=== PATIENT | female | born 1945 | race Caucasian/White ===

== ENCOUNTER 2019-12-11 05:31 | Inpatient (IN) | payer OTHER ==
[~2019-12-11] VITALS: Ht 154.9 cm; Wt 57.6 kg
[2019-12-11 06:13] VITALS: BP_SYST 162
--- NOTE | 2019-12-11 06:13 | NUR ---
Patient to ER bed 6 to gown for evaluation. Side rails up. Report given to HAYLEE Walker.
--- NOTE | 2019-12-11 06:15 | NUR ---
Pt is alert and oriented. Family at bedside. Pt C/O swelliing to bilateral lower extremities, SOB and loss of appetite. NC @ 3L, SPO2 97%, ST on monitor. Will continue to monitor.
--- NOTE | 2019-12-11 06:18 | NUR ---
ER MD DUMONT AT BEDSIDE EXAMINING PATIENT.
--- NOTE | 2019-12-11 06:45 | NUR ---
# 22 gauge angiocath placed to RFA. Use of asceptic technique. Opsite placed over site. Blood return noted. Blood for lab drawn from site. Flushed with 10 cc of normal saline. No evidence of infiltration noted. Patient tolerated well.
--- NOTE | 2019-12-11 07:05 | NUR ---
Report given to ashley RN. Pt resting in bed. No signs of acute distress noted at this time.
--- NOTE | 2019-12-11 07:15 | NUR ---
Report from Denise LEACH
[2019-12-11 07:18] LABS: BASOPHILS % (AUTO) 0.4 % (0.0-2.0); EOSINOPHILS % (AUTO) 0.1 % (0.0-4.0); HEMATOCRIT 41.1 % (36-48); HEMOGLOBIN 13.6 g/dL (12.0-16.0); LYMPHOCYTES # (AUTO) 0.8 K/uL (1.0-5.5); MEAN CORPUSCULAR HEMOGLOBIN 29 pg (27-31); MEAN CORPUSCULAR HGB CONC 33 % (32-36); MEAN CORPUSCULAR VOLUME 88 fL (79.0-98.0); MONOCYTES # (AUTO) 0.4 K/uL (0.0-1.0); MONOCYTES % (AUTO) 4.1 % (1.7-9.3); NEUTROPHILS # (AUTO) 8.8 K/uL (1.8-7.7); NEUTROPHILS % (AUTO) 87.4 % (40.0-70.0); PLATELET COUNT (AUTO) 206 K/uL (130-430); RED BLOOD CELL COUNT(AUTO) 4.67 MIL/uL (4.2-6.2); RED CELL DISTRIBUTION WIDTH 14.1 % (9.0-15.0)
--- NOTE | 2019-12-11 07:25 | NUR ---
shift lab technician at bedside
[2019-12-11 07:38] LABS: ALANINE AMINOTRANSFERASE 77 U/L (12-78); ALBUMIN 4.1 g/dL (3.4-4.8); ANION GAP 10 (5-15); ASPARTATE AMINOTRANSFERASE 42 U/L (10-37); CALCIUM 8.9 mg/dL (8.4-11.0); CHLORIDE 98 mmol/L (98-107); CREATININE 0.64 mg/dL (0.55-1.30); GLUCOSE 257 mg/dL (70-99); SODIUM SERUM 129 mmol/L (136-145); TOTAL BILIRUBIN 0.9 mg/dL (0.0-1.0); UREA NITROGEN, BLOOD 22 mg/dL (8-21)
--- NOTE | 2019-12-11 08:15 | NUR ---
Patient assisted to restroom. Patient offered Breakfast, refused. Patient given jello and water as requested.
--- NOTE | 2019-12-11 08:25 | NUR ---
ER Dr. Murphy at bedside examining patient.
[2019-12-11 08:57] LABS: INR 1.1 (0.8-1.2)
[2019-12-11] MEDS ORDERED: NITROGLYCERIN 1 INCH (GM) OINT. TP ONE (09:30)
--- NOTE | 2019-12-11 09:30 | NUR ---
CTA consent obtained.
[2019-12-11] MEDS ORDERED: ASPI-1155 PO (09:35)
[2019-12-11] MEDS ORDERED: ASPI-989 PO (09:35)
[2019-12-11] MEDS ORDERED: ASPI-1153 PO (09:35)
[2019-12-11] MEDS ORDERED: LIP10 PO (09:38)
[2019-12-11] MEDS ORDERED: GLUXR500 PO (09:38)
--- NOTE | 2019-12-11 09:50 | NUR ---
Patient returned to ER from CT
[2019-12-11] MEDS ORDERED: IOHEXOL 350 mgI/mL, 150 ML INFUS..BTL IV ONE (09:57)
--- NOTE | 2019-12-11 10:11 | NUR ---
Admission Note Received patient from ER with diagnosis of chf. Initial Plan of Care discussed-patient verbalized understanding. Family at bedside. Oriented to room, call light, pain management and safety.
[2019-12-11 10:23] VITALS: BP_SYST 105
[2019-12-11] MEDS ORDERED: FUROSEMIDE 40 MG/4 ML VIAL IVP ONE (11:30)
[2019-12-11 12:31] VITALS: BP_SYST 126
[2019-12-11] MEDS ORDERED: ASPIRIN 325 MG TABLET (ECOTRIN) PO ONE (12:45)
[2019-12-11] MEDS ORDERED: INSULIN REGULAR, HUMAN 100 UNITS/ML, 10 ML VIAL (humuLIN R) SUBCUT PRN (12:45)
[2019-12-11] MEDS ORDERED: DEXTROSE 50% JECT 50 ML DISP.SYRIN IVP PRN (12:45)
--- NOTE | 2019-12-11 12:47 | NUR ---
medications patient is resting in bed, at the bedside, educated on medication uses and side effects, patient verbalized understanding, patient tolerated well, no other needs addressed at this time, patient sitting on the edge of the bed, on 2L nasal cannula.
[2019-12-11 14:28] LABS: CHOLESTEROL 194 mg/dL (<200); HDL CHOLESTEROL 45 mg/dL (>55); LDL CHOLESTEROL 128 mg/dL (<100); TRIGLYCERIDES 94 mg/dL (30-150)
--- NOTE | 2019-12-11 14:31 | NUR ---
CONSULTATION PAGED/CALLED Reason for Consultation: CHF Person Who was Notified: ODETTE Consulting Physician: Earth Auger Operator Specialty: CARDIO Ordering Physician:
[2019-12-11] MEDS: FUROSEMIDE 40 MG/4 ML VIAL IVP SCH ×2 (14:36→22:01)
--- NOTE | 2019-12-11 14:37 | NUR ---
scheduled medication patient is resting in bed, sitting on the chair watching tv, educated on medication uses and side effects, patient verbalized understanding, patient tolerated well, assisted patient to bathroom and back to the chair, no other needs addressed at this time, patient sitting on the edge of the bed, on 2L nasal cannula, fall/safety precautions in place.
[2019-12-11 16:19] VITALS: BP_SYST 126
--- NOTE | 2019-12-11 16:40 | NUR ---
IV insertion done for CT with contrast to be done, patient verbalized understanding, no signs of distress at this time, assisted patient to bathroom and back to chair.
[2019-12-11] MEDS ORDERED: LOSARTAN POTASSIUM 50 MG TABLET (COZAAR) PO ONE (17:30)
--- NOTE | 2019-12-11 18:48 | NUR ---
closing note patient is resting in bed, sitting on the chair watching tv, no signs of distress at this time, no other needs addressed at this time, on 2L nasal cannula, call light within reach, fall/safety precautions in place, will endorse report to noc shift nurse to continue with care, patient can walk steady to the bathroom with assistance, patient has been sitting on the chair and there are times when she does not call for assistance to the bathroom, her chair is close to the bathroom.
[2019-12-11 20:00] VITALS: BP_SYST 117
--- NOTE | 2019-12-11 20:00 | NUR ---
ASSUMED CARE. RECEIVED ALERT,ORIENTED,SITTING ON CHAIR. AFEBRILE, NOT IN ACUTE DISTRESS. VERBALIZED SOB ON EXERTION AND ORTHOPNEA. ALSO COMPLAINED OF BILATERAL LEG/FOOT PAIN. NO PAIN MEDICATION ORDERED. WILL CALL ATTENDING MD. WITH SALINE LOCK TO THE RIGHT FOREARM #22 INTACT. SAO2=98% ON 2 LPM O2 VIA NC. SINUS RHYTHM AT 90'S/MINUTE ON THE MONITOR. VS STABLE, WILL CONTINUE TO MONITOR. NEEDS ATTENDED.
[2019-12-11] MEDS: CARVEDILOL 12.5 MG TABLET (COREG) PO SCH (21:09)
--- NOTE | 2019-12-11 21:09 | NUR ---
DUE MEDICATION GIVEN SCHEDULED.
--- NOTE | 2019-12-11 21:19 | NUR ---
paged paged for Dr Donaldson, dialed . s/w Barbara.
--- NOTE | 2019-12-11 21:30 | NUR ---
, CLOTH TESTER QUALITY FOR RETURNED CALL AND MADE AWARE OF PT'S COMPLAINT. NORCO 5/325 MG PO X1 ORDERED VIA TELEPHONE.
[2019-12-11] MEDS ORDERED: HYDROcodone/ACETAMIN 5-325 MG TAB (NORCO/ VICODIN) PO ONE (21:45)
--- NOTE | 2019-12-11 22:01 | NUR ---
NORCO 5/325 MG 1 TAB.PO AND LASIX 40 MG IVP GIVEN.
[2019-12-11] MEDS: INSULIN LISPRO SLIDING SCALE 100 UNITS/ML VIAL (humaLOG) SUBCUT PRN (23:27)
[2019-12-11] MEDS: ZOLPIDEM TARTRATE 5 MG TABLET PO PRN (23:30)
--- NOTE | 2019-12-11 23:30 | NUR ---
FINGERSTICK BLOOD SUGAR JUSUC=866. 2 UNITS OF HUMALOG SQ GIVEN PER SLIDING SCALE. AMBIEN 5 MG PO ALSO GIVEN REQUESTED FOR SLEEP. PT. ATE SNACK (OF FRUITS) PER DAIRY INSPECTOR.
--- NOTE | 2019-12-12 00:15 | NUR ---
ASLEEP, NOT IN ANY KIND OF DISTRESS. NO PAIN OR DISCOMFORT NOTED AT THIS TIME. SBP=95 POSSIBLY DUE TO LASIX IV. OTHERWISE ASYMPTOMATIC. SIDE RAILS UP, CALL LIGHT WITHIN REACH,BED ALARM ON. KEPT WARM AND COMFORTABLE. WILL CONTINUE TO MONITOR.
[2019-12-12 01:01] VITALS: BP_SYST 95
--- NOTE | 2019-12-12 02:15 | NUR ---
ASLEEP, PT. REMAINS ASYMPTOMATIC AND PAIN FREE.
--- NOTE | 2019-12-12 04:00 | NUR ---
ASLEEP, NO PAIN OR DISCOMFORT NOTED. CONDITION REMAIN UNCHANGED. WILL CONTINUE TO MONITOR.
[2019-12-12] MEDS: FUROSEMIDE 40 MG/4 ML VIAL IVP SCH (06:09)
--- NOTE | 2019-12-12 06:09 | NUR ---
FINGERSTICK BLOOD SUGAR ZIAON=122. NO INSULIN COVERAGE NEEDED. DUE MEDICATION GIVEN. PT. REMAINS STABLE AND PAIN FREE. WILL ENDORSE CARE TO AM SHIFT RN.
[2019-12-12 06:20] LABS: BASOPHILS % (AUTO) 0.6 % (0.0-2.0); EOSINOPHILS # (AUTO) 0.1 K/uL (0.0-0.4); EOSINOPHILS % (AUTO) 1.4 % (0.0-4.0); HEMOGLOBIN 12.6 g/dL (12.0-16.0); LYMPHOCYTES # (AUTO) 1.4 K/uL (1.0-5.5); LYMPHOCYTES % (AUTO) 22.5 % (20.5-51.5); MEAN CORPUSCULAR HEMOGLOBIN 29 pg (27-31); MEAN CORPUSCULAR HGB CONC 33 % (32-36); MEAN CORPUSCULAR VOLUME 88 fL (79.0-98.0); MONOCYTES # (AUTO) 0.7 K/uL (0.0-1.0); MONOCYTES % (AUTO) 10.8 % (1.7-9.3); NEUTROPHILS # (AUTO) 3.9 K/uL (1.8-7.7); NEUTROPHILS % (AUTO) 64.7 % (40.0-70.0); PLATELET COUNT (AUTO) 170 K/uL (130-430); RED BLOOD CELL COUNT(AUTO) 4.32 MIL/uL (4.2-6.2); RED CELL DISTRIBUTION WIDTH 14.1 % (9.0-15.0)
[2019-12-12 06:41] LABS: INR 1.1 (0.8-1.2)
[2019-12-12 06:51] LABS: ALANINE AMINOTRANSFERASE 58 U/L (12-78); ALBUMIN 3.5 g/dL (3.4-4.8); ANION GAP 7 (5-15); ASPARTATE AMINOTRANSFERASE 36 U/L (10-37); CALCIUM 8.9 mg/dL (8.4-11.0); CHLORIDE 103 mmol/L (98-107); CREATININE 0.67 mg/dL (0.55-1.30); GLUCOSE 125 mg/dL (70-99); POTASSIUM 3.3 mmol/L (3.5-5.1); SODIUM SERUM 138 mmol/L (136-145); THYROID STIMULATING HORMONE 3.46 uIu/mL (0.36-3.74); TOTAL BILIRUBIN 0.7 mg/dL (0.0-1.0); UREA NITROGEN, BLOOD 19 mg/dL (8-21)
--- NOTE | 2019-12-12 07:07 | NUR ---
ALBINO FROM THE LAB.CALLED RE: TROPONIN=[phone]. SERUM POTASSIUM LEVEL ALSO LOW AT 3.3. WILL NOTIFY COMPUTER TEACHER ON CASE .
--- NOTE | 2019-12-12 07:11 | NUR ---
CARDILOGIST, DR MONDRAGON WAS CALLED, RE: CRITICAL TROP LEVEL. SPOKE TO TALAT.
--- NOTE | 2019-12-12 07:20 | NUR ---
REPORT GIVEN TO SANAZ ADDISON.
--- NOTE | 2019-12-12 07:30 | NUR ---
Opening note Patient sitting up in bed at this time, A/ox4, no complaint of pain. No SOB. Iv patent, intact. No adverse side effects noted. No infiltration noted. On safety and aspiration precautions, HOB kept elevated, 3 side rails up, call light within reach. Patient in stable condition. Will continue to monitor.
[2019-12-12 08:00] VITALS: BP_SYST 111
[2019-12-12] MEDS: LOSARTAN POTASSIUM 50 MG TABLET (COZAAR) PO SCH (08:58)
[2019-12-12] MEDS: SPIRONOLACTONE 25 MG TABLET (ALDACTONE) PO SCH (08:58)
[2019-12-12] MEDS: CARVEDILOL 12.5 MG TABLET (COREG) PO SCH ×2 (08:58→20:50)
[2019-12-12] MEDS ORDERED: ASPIRIN 81 MG TAB.CHEW PO SCH (09:00)
[2019-12-12] MEDS ORDERED: POTASSIUM CHLORIDE 20 MEQ TAB.PRT.SR PO ONE (09:00)
[2019-12-12] MEDS ORDERED: POTASSIUM CHLORIDE 20 MEQ TAB.PRT.SR PO SCH (09:00)
[2019-12-12] MEDS ORDERED: ASPIRIN 325 MG TABLET (ECOTRIN) PO SCH (09:00)
--- NOTE | 2019-12-12 09:00 | NUR ---
medications All morning medications given as ordered. No nausea, no vomiting noted.
[2019-12-12] MEDS ORDERED: ASPIRIN 81 MG TAB.CHEW PO ONE (09:15)
[2019-12-12] MEDS ORDERED: ACETAMINOPHEN 325 MG TABLET PO PRN (09:30)
[2019-12-12] MEDS: HYDROcodone/ACETAMIN 5-325 MG TAB (NORCO/ VICODIN) PO PRN (10:01)
--- NOTE | 2019-12-12 11:25 | NUR ---
bathroom rounds patient ambulated to the restroom and back to bed with assistance. No other needs at this time.
[2019-12-12] MEDS: MORPHINE 2 MG/ML INJ. SYRINGE IVP PRN ×2 (11:54→20:47)
[2019-12-12 12:42] VITALS: BP_SYST 101
--- NOTE | 2019-12-12 13:26 | NUR ---
rounds Patient resting in bed at this time, no complaints of pain. No other needs at this time.
--- NOTE | 2019-12-12 15:45 | NUR ---
bathroom rounds Assisted patient to the restroom and back to bed. patient noted with steady gait.
--- NOTE | 2019-12-12 16:23 | NUR ---
Dietitian Recommendations * Recommend CCHO, cardiac diet LP, RD Please refer to Nutrition Assessment for details. Signed: 12/12/19 at 1624 by Zainab WATTS <Co-Signature Required> Co-Signed: 12/12/19 at [address] Addendum: 12/12/19 at 1626 by Zainab WATTS Amended: Links added.
[2019-12-12 16:55] VITALS: BP_SYST 108
[2019-12-12] MEDS: INSULIN LISPRO SLIDING SCALE 100 UNITS/ML VIAL (humaLOG) SUBCUT PRN (17:17)
--- NOTE | 2019-12-12 18:33 | NUR ---
closing note Patient sitting up in bed at this time, A/ox4, no complaint of pain. No SOB. Iv patent, intact. No adverse side effects noted. No infiltration noted. On safety and aspiration precautions, HOB kept elevated, 3 side rails up, call light within reach. Patient in stable condition. All needs met.
--- NOTE | 2019-12-12 19:22 | NUR ---
OPENING NOTES Received patient resting in bed, 2L NC and no signs of respiratory distress observed. IV site patent, dressings c/d/i. Oriented patient to call light and plan of care. Call light within reach, bed alarm on, bed at lowest position. Will continue to monitor.
[2019-12-12 20:25] VITALS: BP_SYST 130
[2019-12-12] MEDS: POTASSIUM CHLORIDE 20 MEQ TAB.PRT.SR PO SCH (20:46)
--- NOTE | 2019-12-12 21:00 | NUR ---
Provided patient PRN pain medication, patient tolerating well. Before providing medication, assisted with ambulation to the restroom. Unsteady gait without support. No signs of respiratory distress. Will continue to monitor. Bed alarm on and call light within reach.
[2019-12-12] MEDS: ZOLPIDEM TARTRATE 5 MG TABLET PO PRN (23:13)
--- NOTE | 2019-12-12 23:20 | NUR ---
Provided patient with al and ambien. Call light within reach, bed alarm on, and bed at lowest position. Will continue to monitor.
[2019-12-13] VITALS: BP_SYST 138
--- NOTE | 2019-12-13 02:11 | NUR ---
Patient is resting, eyes closed. Call light within reach, bed alarm on, bed at lowest position. Feet elevated. Will continue to monitor.
--- NOTE | 2019-12-13 04:05 | NUR ---
Patient is asleep, eyes closed. Rise and fall of chest noted, No respiratory distress, 2L NC. Will continue to monitor.
[2019-12-13 06:50] LABS: ANION GAP 8 (5-15); CALCIUM 8.8 mg/dL (8.4-11.0); CHLORIDE 102 mmol/L (98-107); CREATININE 0.67 mg/dL (0.55-1.30); GLUCOSE 129 mg/dL (70-99); POTASSIUM 3.9 mmol/L (3.5-5.1); SODIUM SERUM 138 mmol/L (136-145); UREA NITROGEN, BLOOD 18 mg/dL (8-21)
--- NOTE | 2019-12-13 06:57 | NUR ---
CLOSING NOTES Patient is resting in bed, 2L NC and no signs of respiratory distress observed. IV site patent, dressings c/d/i. Patient returns after ambulating to the restroom. Call light within reach, bed alarm on, bed at lowest position. All needs met throughout shift. Will endorse care to oncoming shift.
[2019-12-13 08:00] VITALS: BP_SYST 117
--- NOTE | 2019-12-13 08:00 | NUR ---
RN INITIAL NOTES RECEIVED PATIENT IN BED ALERT AWAKE AND VERBAL NO PAIN AT THIS TIME , RESP EVEN AND UNLABORED , PATIENT BRP AND SAFETY AWARENESS REINFORCED ASSISTED WITH BRP
[2019-12-13] MEDS: LOSARTAN POTASSIUM 50 MG TABLET (COZAAR) PO SCH ×3 (08:37→09:43)
[2019-12-13] MEDS: POTASSIUM CHLORIDE 20 MEQ TAB.PRT.SR PO SCH ×2 (08:38→21:02)
[2019-12-13] MEDS: CARVEDILOL 12.5 MG TABLET (COREG) PO SCH ×2 (08:38→21:03)
[2019-12-13] MEDS: ASPIRIN 81 MG TAB.CHEW PO SCH (08:38)
[2019-12-13] MEDS: SPIRONOLACTONE 25 MG TABLET (ALDACTONE) PO SCH (08:39)
--- NOTE | 2019-12-13 10:00 | NUR ---
ROUNDS PATIENT ASSISTED TO THE BR
--- NOTE | 2019-12-13 11:33 | NUR ---
DR MONDRAGON CARDIOLOGY CAME DISCUSSED PATIENT CONDITION
[2019-12-13] MEDS ORDERED: METOLAZONE 5 MG TABLET PO ONE (11:45)
[2019-12-13] MEDS: INSULIN LISPRO SLIDING SCALE 100 UNITS/ML VIAL (humaLOG) SUBCUT PRN ×2 (11:49→18:28)
[2019-12-13 12:00] VITALS: BP_SYST 108
--- NOTE | 2019-12-13 14:00 | NUR ---
STOOL SOFTENER PATIENT COMPLAINED OF NO BM X 3 DAYS CALLED MD WITH ORDERS NOTED EXPLAINED TO PATIENT
--- NOTE | 2019-12-13 14:05 | NUR ---
Medical Nutrition Therapy RD provided additional F/U nutrition education on diabetic/heart-healthy MNT. Pt had general nutrition question regarding food choices while on this type of diet. RD educated pt on importance of maintaining consumption of green leafy vegetables, fruits, and whole grain products, and limiting processed products and animal-based foods. Instead, baked fish, and lean poultry sources were encouraged. Pt was appreciative of RD visit. RD contact info was provided w/ handout provided by undergraduate internship 12/12/19. RD also shared resources for diabetic/heart-healthy recipes: [place] [employer] and [place] [employer] websites.
--- NOTE | 2019-12-13 16:00 | NUR ---
ROUNDS PATIENT AWAKE ADLS ASSISTED NO DISTRESS
[2019-12-13] MEDS ORDERED: PSYLLIUM HUSK 1 PKT PACKET PO ONE (16:45)
[2019-12-13] MEDS ORDERED: DOCUSATE SODIUM 100 MG CAPSULE PO PRN (16:45)
[2019-12-13 16:46] VITALS: BP_SYST 106
--- NOTE | 2019-12-13 18:36 | NUR ---
ENDORSEMENT]= WILL ENDORSE TO NEXT SHIFT CONT CARE , PATIENT STILL NEEDS DIURETICS PER RIGGER CHIEF , PATIENT EXPLAINED PLAN OF CARE
[2019-12-13 19:45] VITALS: BP_SYST 118
--- NOTE | 2019-12-13 19:45 | NUR ---
INITIAL NOTE AT INITIAL ASSESSMENT, PATIENT IS RESTING IN BED, STABLE, NO SIGNS OF RESPIRATORY DISTRESS. PATIENT VERBALIZES NO PAIN. PLAN OF CARE FOR THE EVENING IS COMMUNICATED WITH THE PATIENT. PATIENT SUCCESSFULLY DEMONSTRATES USAGE OF CALL LIGHT AT THIS TIME. BED IS LOCKED, ALARMED, AND AT THE LOWEST LEVEL. FALL, SAFETY, RESPIRATORY, AND ASPIRATION PRECAUTIONS WILL BE TAKEN THROUGHOUT THE SHIFT.
--- NOTE | 2019-12-13 19:50 | NUR ---
INITIAL NOTE AT INITIAL ASSESSMENT, PATIENT IS RESTING IN BED, STABLE, NO SIGNS OF RESPIRATORY DISTRESS. PATIENT SHOWS NO PAIN PER FLACC SCALE USED. PLAN OF CARE FOR THE EVENING IS COMMUNICATED WITH THE PATIENT. CALL LIGHT TEACH BACK IS UNSUCCESSFUL DUE TO COGNITIVE IMPAIRMENT. FREQUENT ROUNDING WILL BE COMPLETED TO CLOSELY ASSESS FOR PATIENT'S NEEDS. BED IS LOCKED, ALARMED, AND AT THE LOWEST LEVEL. FALL, SAFETY, RESPIRATORY, AND ASPIRATION PRECAUTIONS WILL BE TAKEN THROUGHOUT THE SHIFT. PATIENT WILL BE TURNED AT LEAST [id number] THROUGHOUT THE SHIFT. Addendum: 12/14/19 at 0730 by Can Claudio RN NOTE INTENDED FOR DIFFERENT PATIENT
[2019-12-13] MEDS: PSYLLIUM HUSK 1 PKT PACKET PO SCH (21:00)
[2019-12-13] MEDS: DOCUSATE SODIUM 100 MG CAPSULE PO SCH (21:02)
[2019-12-13] MEDS: MORPHINE 2 MG/ML INJ. SYRINGE IVP PRN (21:12)
--- NOTE | 2019-12-13 21:45 | NUR ---
NOTE PRN MEDICATION FOR PAIN GIVEN AT THIS TIME PER MD ORDERS. SCHEDULED MEDICATIONS ALSO GIVEN AT THIS TIME, PATIENT TOLERATED WELL. SHE IS STABLE, NO SIGNS OF RESPIRATORY DISTRESS. CALL LIGHT IS WITHIN REACH. BED IS LOCKED, ALARMED, AND AT THE LOWEST LEVEL.
--- NOTE | 2019-12-13 21:50 | NUR ---
NOTE PATIENT HAS NO RESIDUAL AT THIS TIME. SCHEDULED MEDICATIONS GIVEN AT THIS TIME, PATIENT TOLERATED WELL. HE IS STABLE, NO SIGNS OF RESPIRATORY DISTRESS. BED IS LOCKED, ALARMED, AND AT THE LOWEST LEVEL. Addendum: 12/14/19 at 0730 by Can Claudio RN NOTE INTENDED FOR DIFFERENT PATIENT
[2019-12-13] MEDS: ZOLPIDEM TARTRATE 5 MG TABLET PO PRN (22:49)
--- NOTE | 2019-12-13 23:45 | NUR ---
NOTE PRN MEDICATION FOR INSOMNIA IS GIVEN AT THIS TIME PER PATIENT REQUEST. SHE IS STABLE, NO SIGNS OF RESPIRATORY DISTRESS. CALL LIGHT WITHIN REACH. BED IS LOCKED, ALARMED, AND AT THE LOWEST LEVEL.
[2019-12-14 00:39] VITALS: BP_SYST 131
--- NOTE | 2019-12-14 01:45 | NUR ---
NOTE PATIENT IS SLEEPING, STABLE, NO SIGNS OF RESPIRATORY DISTRESS. CALL LIGHT WITHIN REACH. BED IS LOCKED, ALARMED, AND AT THE LOWEST LEVEL.
--- NOTE | 2019-12-14 03:45 | NUR ---
NOTE PATIENT IS SLEEPING, STABLE, NO SIGNS OF RESPIRATORY DISTRESS. CALL LIGHT WITHIN REACH. BED IS LOCKED, ALARMED, AND AT THE LOWEST LEVEL.
--- NOTE | 2019-12-14 05:00 | NUR ---
NOTE PATIENT IS SLEEPING, STABLE, NO SIGNS OF RESPIRATORY DISTRESS. CALL LIGHT WITHIN REACH. BED IS LOCKED, ALARMED, AND AT THE LOWEST LEVEL.
--- NOTE | 2019-12-14 06:30 | NUR ---
CLOSING NOTE BLOOD SUGAR CHECK AT THIS TIME REQUIRED NO INSULIN COVERAGE PER SSI ORDERED BY MD. AT THIS TIME, PATIENT IS RESTING IN BED, STABLE, NO SIGNS OF RESPIRATORY DISTRESS. BED IS LOCKED, ALARMED, AND AT THE LOWEST LEVEL. FALL, SAFETY, RESPIRATORY, AND ASPIRATION PRECAUTIONS HAVE BEEN IN PLACE THROUGHOUT THE SHIFT. WILL CONTINUE TO MONITOR UNTIL SHIFT REPORT IS GIVEN AT BEDSIDE TO AM NURSE.
[2019-12-14 07:44] LABS: BASOPHILS % (AUTO) 0.3 % (0.0-2.0); EOSINOPHILS # (AUTO) 0.1 K/uL (0.0-0.4); EOSINOPHILS % (AUTO) 2.1 % (0.0-4.0); HEMATOCRIT 35.9 % (36-48); LYMPHOCYTES # (AUTO) 1.2 K/uL (1.0-5.5); LYMPHOCYTES % (AUTO) 21.7 % (20.5-51.5); MEAN CORPUSCULAR HEMOGLOBIN 29 pg (27-31); MEAN CORPUSCULAR HGB CONC 33 % (32-36); MEAN CORPUSCULAR VOLUME 88 fL (79.0-98.0); MONOCYTES # (AUTO) 0.6 K/uL (0.0-1.0); MONOCYTES % (AUTO) 11.9 % (1.7-9.3); NEUTROPHILS # (AUTO) 3.4 K/uL (1.8-7.7); PLATELET COUNT (AUTO) 149 K/uL (130-430); RED BLOOD CELL COUNT(AUTO) 4.08 MIL/uL (4.2-6.2); RED CELL DISTRIBUTION WIDTH 13.8 % (9.0-15.0); WHITE BLOOD COUNT (AUTO) 5.3 K/uL (4.8-10.8)
[2019-12-14 08:19] LABS: ANION GAP 6 (5-15); CHLORIDE 101 mmol/L (98-107); CREATININE 0.57 mg/dL (0.55-1.30); GLUCOSE 128 mg/dL (70-99); POTASSIUM 4.1 mmol/L (3.5-5.1); SODIUM SERUM 137 mmol/L (136-145); UREA NITROGEN, BLOOD 14 mg/dL (8-21)
[2019-12-14] MEDS: PSYLLIUM HUSK 1 PKT PACKET PO SCH ×3 (09:00→20:47)
[2019-12-14] MEDS: SPIRONOLACTONE 25 MG TABLET (ALDACTONE) PO SCH ×2 (09:13→20:47)
[2019-12-14] MEDS: LOSARTAN POTASSIUM 50 MG TABLET (COZAAR) PO SCH (09:13)
[2019-12-14] MEDS: CARVEDILOL 12.5 MG TABLET (COREG) PO SCH ×2 (09:14→20:47)
[2019-12-14] MEDS: ASPIRIN 81 MG TAB.CHEW PO SCH (09:14)
[2019-12-14] MEDS: DOCUSATE SODIUM 100 MG CAPSULE PO SCH ×2 (09:14→20:46)
[2019-12-14] MEDS: POTASSIUM CHLORIDE 20 MEQ TAB.PRT.SR PO SCH ×2 (09:15→20:46)
[2019-12-14] MEDS: cefTRIAXone 1 GM in D5W 50 ML IV SCH (09:16)
[2019-12-14] MEDS ORDERED: METOLAZONE 2.5 MG TABLET PO ONE (11:15)
[2019-12-14 12:29] VITALS: BP_SYST 123
[2019-12-14] MEDS: INSULIN LISPRO SLIDING SCALE 100 UNITS/ML VIAL (humaLOG) SUBCUT PRN ×2 (12:58→17:15)
[2019-12-14 13:32] LABS: BODY FLUID SOURCE/ TYPE PLEURAL; SOURCE/TYPE ,BODY FLUID THORACENTESIS
[2019-12-14 13:33] LABS: APPEARANCE,SPUN,BODY FLUID CLEAR (CLEAR); BF APPEARANCE UNSPUN HAZY (CLEAR); BODY FLUID COLOR YELLOW (LT YELLOW); BODY FLUID TOTAL VOLUME 1000 mL; RBC, BODY FLUID 817 /uL; WBC, BODY FLUID 861 /uL
[2019-12-14 13:34] LABS: MONOCYTES,BODY FLUID 85 %; NEUTROPHIL, BODY FLUID 15 %
[2019-12-14] MEDS: HYDROcodone/ACETAMIN 5-325 MG TAB (NORCO/ VICODIN) PO PRN (14:09)
[2019-12-14 16:32] VITALS: BP_SYST 128
--- NOTE | 2019-12-14 19:45 | NUR ---
Endorsement of care: Report received from ashley LEACH at patient's bedside; however, patient requested a female nurse. Care endorsed at this time to HAYLEE Mancilla. Addendum: 12/15/19 at 2355 by Deni Bunch RN Please disregard note, wrong date.
[2019-12-14 19:50] VITALS: BP_SYST 110
--- NOTE | 2019-12-14 19:50 | NUR ---
INITIAL NOTE AT INITIAL ASSESSMENT, PATIENT IS RESTING IN BED, STABLE, NO SIGNS OF RESPIRATORY DISTRESS. PATIENT VERBALIZES TOLERABLE PAIN. PLAN OF CARE FOR THE EVENING IS COMMUNICATED WITH THE PATIENT. PATIENT SUCCESSFULLY DEMONSTRATES USAGE OF CALL LIGHT AT THIS TIME. BED IS LOCKED, ALARMED, AND AT THE LOWEST LEVEL. FALL, SAFETY, RESPIRATORY, AND ASPIRATION PRECAUTIONS WILL BE TAKEN THROUGHOUT THE SHIFT.
[2019-12-14] MEDS: MORPHINE 2 MG/ML INJ. SYRINGE IVP PRN (20:49)
[2019-12-14 21:34] LABS: BODY FLUID GLUCOSE 166 mg/dL; BODY FLUID TOTAL PROTEIN 2.7 g/dL
--- NOTE | 2019-12-14 21:50 | NUR ---
NOTE PRN MEDICATION FOR PAIN GIVEN AT THIS TIME FOR PATIENT'S COMPLAIN OF PAIN. SCHEDULED MEDICATIONS ALSO GIVEN AT THIS TIME, PATIENT TOLERATED WELL. SHE IS STABLE, NO SIGNS OF RESPIRATORY DISTRESS. CALL LIGHT IS WITHIN REACH. BED IS LOCKED, ALARMED, AND AT THE LOWEST LEVEL.
[2019-12-14] MEDS: ZOLPIDEM TARTRATE 5 MG TABLET PO PRN (22:12)
--- NOTE | 2019-12-14 23:50 | NUR ---
NOTE PRN MEDICATION FOR INSOMNIA GIVEN PER PATIENT COMPLAINT OF INSOMNIA. SHE IS RESTING IN BED, IS STABLE, NO SIGNS OF RESPIRATORY DISTRESS. CALL LIGHT IS WITHIN REACH. BED IS LOCKED, ALARMED, AND AT THE LOWEST LEVEL.
[2019-12-15 00:37] VITALS: BP_SYST 115
[2019-12-15] MEDS: MORPHINE 2 MG/ML INJ. SYRINGE IVP PRN ×2 (01:28→22:44)
--- NOTE | 2019-12-15 01:50 | NUR ---
NOTE PRN MEDICATION FOR PAIN GIVEN AT THIS TIME FOR PATIENT'S COMPLAIN OF PAIN. SHE IS STABLE, NO SIGNS OF RESPIRATORY DISTRESS. CALL LIGHT IS WITHIN REACH. BED IS LOCKED, ALARMED, AND AT THE LOWEST LEVEL.
--- NOTE | 2019-12-15 03:00 | NUR ---
NOTE PATIENT IS SLEEPING, STABLE, NO SIGNS OF RESPIRATORY DISTRESS. CALL LIGHT WITHIN REACH. BED IS LOCKED, ALARMED, AND AT THE LOWEST LEVEL.
--- NOTE | 2019-12-15 05:00 | NUR ---
NOTE PATIENT IS SLEEPING, STABLE, NO SIGNS OF RESPIRATORY DISTRESS. CALL LIGHT WITHIN REACH. BED IS LOCKED, ALARMED, AND AT THE LOWEST LEVEL.
--- NOTE | 2019-12-15 06:15 | NUR ---
CLOSING NOTE BLOOD SUGAR CHECK AT THIS TIME REQUIRED NO INSULIN COVERAGE PER SSI ORDERED BY MD. AT THIS TIME, PATIENT IS RESTING IN BED, STABLE, NO SIGNS OF RESPIRATORY DISTRESS. BED IS LOCKED, ALARMED, AND AT THE LOWEST LEVEL. FALL, SAFETY, AND ASPIRATION PRECAUTIONS HAVE BEEN IN PLACE THROUGHOUT THE SHIFT. WILL CONTINUE TO MONITOR UNTIL SHIFT REPORT IS GIVEN AT BEDSIDE TO AM NURSE.
[2019-12-15 07:50] VITALS: BP_SYST 121
--- NOTE | 2019-12-15 08:00 | NUR ---
Note Pt sitting up in bed eating breakfast at this time. No SOB/resp or pain/discomfort noted at this time. Tele unit attached and intact. IV in right forearm intact and patent at this time. No needs noted at this time. Call light within reach.
[2019-12-15] MEDS: cefTRIAXone 1 GM in D5W 50 ML IV SCH (08:24)
[2019-12-15] MEDS: CARVEDILOL 12.5 MG TABLET (COREG) PO SCH ×2 (08:25→20:54)
[2019-12-15] MEDS: ASPIRIN 81 MG TAB.CHEW PO SCH (08:25)
[2019-12-15] MEDS: POTASSIUM CHLORIDE 20 MEQ TAB.PRT.SR PO SCH ×2 (08:25→20:54)
[2019-12-15] MEDS: DOCUSATE SODIUM 100 MG CAPSULE PO SCH ×2 (08:25→20:55)
[2019-12-15] MEDS: LOSARTAN POTASSIUM 50 MG TABLET (COZAAR) PO SCH (08:26)
[2019-12-15] MEDS: SPIRONOLACTONE 25 MG TABLET (ALDACTONE) PO SCH ×2 (08:26→20:55)
[2019-12-15] MEDS: PSYLLIUM HUSK 1 PKT PACKET PO SCH ×3 (08:27→20:56)
[2019-12-15] MEDS ORDERED: METOLAZONE 2.5 MG TABLET PO SCH (09:00)
[2019-12-15] MEDS: INSULIN LISPRO SLIDING SCALE 100 UNITS/ML VIAL (humaLOG) SUBCUT PRN ×3 (11:29→21:12)
--- NOTE | 2019-12-15 11:45 | NUR ---
Note Pt ambulates in room and to restroom independently with FWW and steady gait. Pt was able to have bowel movement today after 4 days. Pt's at bedside at this time. Pt denies any needs at this time. Call light within reach.
[2019-12-15 12:00] VITALS: BP_SYST 109
--- NOTE | 2019-12-15 14:24 | NUR ---
Nutrition F/U RD reviewed pt's current EMR including diet Hx, physician notes, nursing notes, pertinent labs/meds/procedures, care trends and care activity. Nutrition Consult received for BLE wounds. Current Diet Order: Cardiac CCHO diet x 2 days Subjective information: Pt seen in room w/ family members earlier this morning. Pt is awaiting R sided thoracentesis today 12/15. Continues w/ good appetite. Bertrand is warranted for skin integrity. BG lab value 12/14 128H Current PO intake: 12/14/2019: 85% average of 3 meals 12/13/2019: 75% average of 3 meals Estimated Energy Expenditure (kcals/day) 6222-8943 kcal/day (25-30 kcal/kg ABW for geriatric age) Estimated Protein Required (g/day) 51-61 gm/day (1-1.2 gm/kg ABW for geriatric maintenance) Estimated Fluid Required (l/day) Defer to MD d/t CHF Problem/Etiology/Signs/Symptoms Suspected unintentional wt loss related to possible catabolic condition as evidenced by 23# wt loss/5% wt change in 3 months. *ongoing Increased nutrient needs r/t metabolic demands AEB presence of wound and wound consult. (*new) Expected Outcomes/Goals Monitor appetite and PO intake w/ goals of pt meeting greater than 75% of estimated nutritional needs, labs trending WNL, and skin integrity /wt maintenance. Dietitian Recommendations * Recommend CCHO, cardiac diet w/ Bertrand BID. Modular will provide additional 160 kcal and 5 gm protein daily. Follow Up Mod Risk: F/U in 3-5 days
--- NOTE | 2019-12-15 14:25 | NUR ---
Dietitian Recommendations * Recommend CCHO, cardiac diet w/ Bertrand BID. Modular will provide additional 160 kcal and 5 gm protein daily. Please see Nutrition F/U note for details. GAIL, ROBIN
--- NOTE | 2019-12-15 14:55 | NUR ---
NOTE Pt's right sided US guided thoracentesis was completed [id number]) and fluids sent to lab and pathology. Pt now sitting on side of bed and speaking on her cell phone to family. Pt denies any needs at this time. Call light within reach.
[2019-12-15 16:00] VITALS: BP_SYST 110
[2019-12-15] MEDS: HYDROcodone/ACETAMIN 5-325 MG TAB (NORCO/ VICODIN) PO PRN (16:29)
--- NOTE | 2019-12-15 16:49 | NUR ---
Wound Evaluation: Wound Consult ordered for Low Valeriy Score. Patient evaluated for a low Valeriy score of 17. Patient was awake, alert, oriented and received in a Ila Bed with an IsoFlex VERENA mattress. Patient is able to turn in bed independently. Recommend encourage and assist patient as needed with repositioning every 2 hours with pillow support. Elevate, off-load and float bilateral heels with pillows. Offload pressure areas with pillows for pressure re-distribution. Perform skin care and monitor skin integrity Q shift. Skin Assessment: 1. Right dorsal lateral foot: Large area of non-intact skin with dry red tissue. Appears to be tissue damage from weeping from prior edematous episode. No odor, no drainage. Megan-site intact. Dry, stable. Mild non-pitting edema present. Extremity, foot and toes have dry, flaky skin. Site measures 8.7 cm x 6.0 cm. 2. Left dorsal lateral foot: Large area of erythematous tissue. Appears to be tissue damage from weeping from prior edematous episode. No odor, no drainage. Megan-site intact. Dry, stable. Mild non-pitting edema present. Extremity, foot and toes have dry, flaky skin. Site measures 8.5 cm x 6.0 cm. Recommend: Cleanse involved areas with mild soap and water. Pat dry. Apply Eucerin cream to involved areas. Perform site care twice a day.
[2019-12-15] MEDS: EMOLLIENT COMBINATION NO.73 78 GM CREAM..G. TP SCH ×2 (18:52→20:56)
--- NOTE | 2019-12-15 18:55 | NUR ---
Note Pt sitting up in BS chair at this time. Pt was checked on q1' and PRN all shift for needs and care. No SOB/resp distress or pain/discomfort noted at this time. IV in right forearm intact and patent. Pt ambulates and moves in and OOB independently all shift. Right side thoracentesis site dressing CDI at this time. Tele unit attached and intact all shift. No needs noted at this time. Call light within reach.
--- NOTE | 2019-12-15 19:45 | NUR ---
Endorsement of care: Report received from dayshift RN at patient's bedside; however, patient requested a female nurse. Care endorsed at this time to HAYLEE Mancilla.
--- NOTE | 2019-12-15 19:55 | NUR ---
Opening Note Received report from Deven LEACH, patient is resting in bed, A/Ox4, patient requests the light are dim, no signs of acute distress, even and unlabored breathing on room air, IV to right FA intact and saline locked, patient complains of pain to her right posterior back but verbalized it is tolerable, safety and fall precautions in place, patient refused bed alarm, will reinforce education, bed locked and in lowest position, two side rails up, call light with patient, will continue to monitor.
[2019-12-15 20:00] VITALS: BP_SYST 111
--- NOTE | 2019-12-15 21:05 | NUR ---
Blood Sugar= 219 Patient's blood sugar is 219. 4 units of insulin lispro indicated per insulin sliding scale at this time. Educated patient on medication uses and potential side effects, patient able to verbalize understanding. Administered medication per MD order, patient tolerated well. Patient is resting in bed, no signs of acute distress. Safety and fall precautions in place, call light with patient, will continue to monitor.
[2019-12-15 21:08] LABS: SOURCE/TYPE ,BODY FLUID THORACENTESIS
[2019-12-15 21:09] LABS: APPEARANCE,SPUN,BODY FLUID CLEAR (CLEAR); BF APPEARANCE UNSPUN SLIGHTLY HAZY (CLEAR); BODY FLUID COLOR YELLOW (LT YELLOW); BODY FLUID SOURCE/ TYPE PLEURAL; BODY FLUID TOTAL VOLUME 975 mL; MONOCYTES,BODY FLUID 94 %; NEUTROPHIL, BODY FLUID 6 %; RBC, BODY FLUID 837 /uL; WBC, BODY FLUID 257 /uL
[2019-12-15] MEDS: ZOLPIDEM TARTRATE 5 MG TABLET PO PRN (22:43)
--- NOTE | 2019-12-15 22:44 | NUR ---
Pain/Insomnia Patient is complaining of 6/10 pain to her right posterior back and requests PRN Ambien to help her sleep. PRN Morphine 2mg indicated for moderate pain and Ambien indicated for insomnia. Educated patient on medication uses and potential side effects, patient able to verbalize understanding. Administered medications per MD order, patient tolerated well. Safety and fall precautions in place, call light with patient, will continue to monitor.
[2019-12-16] VITALS: BP_SYST 114
--- NOTE | 2019-12-16 00:05 | NUR ---
RN Rounds Patient is resting in bed, eyes closed, no signs of acute distress, tolerating room air, IV to right FA intact and saline locked, no complaints of pain. Safety and fall precautions in place, bed locked and in lowest position, two side rails up, call light with patient, will continue to monitor.
--- NOTE | 2019-12-16 02:50 | NUR ---
RN Rounds Patient is resting in bed, eyes closed and asleep, tolerating room air, no signs of acute distress, IV to right FA intact and saline locked. Safety and fall precautions in place, bed locked and in lowest position, two side rails up, call light with patient, will continue to monitor.
[2019-12-16 03:29] LABS: BODY FLUID GLUCOSE 186 mg/dL; BODY FLUID TOTAL PROTEIN 2.5 g/dL
--- NOTE | 2019-12-16 04:32 | NUR ---
RN Rounds Patient is resting in bed, eyes closed, no changes to status, tolerating room air, IV to right FA intact and saline locked. Safety and fall precautions in place, bed locked and in lowest position, two side rails up, call light with patient, will continue to monitor.
--- NOTE | 2019-12-16 06:00 | NUR ---
Blood Sugar= 127 Patient's blood sugar is 2127. No indicated per insulin sliding scale at this time. Patient is resting in bed, no signs of acute distress. Safety and fall precautions in place, call light with patient, will continue to monitor. Addendum: 12/16/19 at 0742 by Charo Carlos RN Blood is 127, disregard 2127.
--- NOTE | 2019-12-16 06:50 | NUR ---
Closing Note Patient is resting in bed, eyes closed, no signs of acute distress, tolerating room air, IV to right FA intact and saline locked, safety and fall precautions in place, patient refused bed alarm despite education, bed locked and in lowest position, two side rails up, call light with patient, will endorse care to dayshift RN.
--- NOTE | 2019-12-16 07:25 | NUR ---
AM ROUNDS: PATIENT LYING ON THE BED.AWAKE,ALERT AND ORIENTED X4. RECEIVED REPORT FROM NIGHT NURSE MAINOR.CALL LIGHT WITH IN REACH. BED LOCKED AT LOWEST POSITION. BILATERAL LOWER LEG MILD SWELLING,WARM TO TOUCH,DRY SCABS,MILD REDNESS.BLANCHABLE,PINK.STABLE THIS TIME.
[2019-12-16 07:40] VITALS: BP_SYST 118
--- NOTE | 2019-12-16 08:30 | NUR ---
MED PASS; TOOK ALL HER MORNING MEDS WELL.NO PROBLEM.
[2019-12-16] MEDS: SPIRONOLACTONE 25 MG TABLET (ALDACTONE) PO SCH (08:31)
[2019-12-16] MEDS: LOSARTAN POTASSIUM 50 MG TABLET (COZAAR) PO SCH (08:32)
[2019-12-16] MEDS: ASPIRIN 81 MG TAB.CHEW PO SCH (08:32)
[2019-12-16] MEDS: CARVEDILOL 12.5 MG TABLET (COREG) PO SCH (08:32)
[2019-12-16 08:36] LABS: ANION GAP 7 (5-15); CALCIUM 8.9 mg/dL (8.4-11.0); CHLORIDE 99 mmol/L (98-107); CREATININE 0.67 mg/dL (0.55-1.30); GLUCOSE 120 mg/dL (70-99); POTASSIUM 4.2 mmol/L (3.5-5.1); SODIUM SERUM 135 mmol/L (136-145); UREA NITROGEN, BLOOD 10 mg/dL (8-21)
[2019-12-16] MEDS: EMOLLIENT COMBINATION NO.73 78 GM CREAM..G. TP SCH (08:38)
[2019-12-16] MEDS: DOCUSATE SODIUM 100 MG CAPSULE PO SCH (08:38)
[2019-12-16] MEDS: PSYLLIUM HUSK 1 PKT PACKET PO SCH (08:39)
[2019-12-16] MEDS ORDERED: GLIMEPIRIDE 2 MG TABLET PO SCH (09:00)
[2019-12-16] MEDS ORDERED: POTASSIUM CHLORIDE 20 MEQ TAB.PRT.SR PO SCH (09:00)
[2019-12-16] MEDS ORDERED: FUROSEMIDE 40 MG TABLET PO SCH (09:00)
--- NOTE | 2019-12-16 10:45 | NUR ---
Dc Order: Dc home and f/u with Dr Sethi in 1-[address] Cruz.
[2019-12-16] MEDS ORDERED: COR12.5 PO (10:48)
[2019-12-16] MEDS ORDERED: LOSA50TA3 PO (10:48)
[2019-12-16] MEDS ORDERED: FURO-149 PO (10:48)
[2019-12-16] MEDS ORDERED: POTA20TA83 PO (10:48)
[2019-12-16] MEDS ORDERED: GLIP2.5T3 PO (10:48)
[2019-12-16] MEDS ORDERED: SPIR25TA PO (10:48)
[2019-12-16 12:00] VITALS: BP_SYST 101
[2019-12-16 12:01] VITALS: BP_SYST 101
--- NOTE | 2019-12-16 14:00 | NUR ---
POST DC CHF APPOINTMENT: CALLED DR MONICO WATSON'S OFFICE P#[phone],THE APPT OBTAINED FOR 01-06-20 WAS CANCELLED, INSTEAD PCP CHANGED IT FOR TOMORROW 12-17-19 @ 11:30AM PER PATIENT.
--- NOTE | 2019-12-16 14:55 | NUR ---
D/C Patient Patient given medication reconciliation form and D/C instructions. Exit Care provided. Patient verbalized understanding. MD discussed with patient the results and treatment provided. Ambulatory with steady gait via wheelchair for discharge to home. Patient in stable condition, ID band removed. IV catheter removed, intact and dressing applied, no active bleeding.E-script sent to patient's designated pharmacy. Patient educated on pain management. All belongings sent with patient.
== END 2019-12-16 14:55 | disposition home or self-care (01) | DRG 280 ==
LOC: SED 05:31 → STU 09:27
PROVIDERS: ADMIT Internal Medicine Hospice and Palliative Medicine; ATTEND Internal Medicine Hospice and Palliative Medicine
PROC: 0W9B3ZZ Drainage of Left Pleural Cavity, Percutaneous Approach (ICD-10-PCS; principal; 2019-12-14)
PROC: 0W993ZZ Drainage of Right Pleural Cavity, Percutaneous Approach (ICD-10-PCS; 2019-12-15)
DX: I11.0 Hypertensive heart disease with heart failure (principal); I50.21 Acute systolic (congestive) heart failure; I21.A1 Myocardial infarction type 2; J91.8 Pleural effusion in other conditions classified elsewhere; I42.0 Dilated cardiomyopathy; G20 Parkinson's disease; F32.9 Major depressive disorder, single episode, unspecified; E10.9 Type 1 diabetes mellitus without complications; Z79.82 Long term (current) use of aspirin; Z79.84 Long term (current) use of oral hypoglycemic drugs; Z79.899 Other long term (current) drug therapy; Z83.3 Family history of diabetes mellitus; Z91.14 Patient's other noncompliance with medication regimen; Z91.19 Patient's noncompliance with other medical treatment and regimen; Z91.5 Personal history of self-harm
CPT/HCPCS: 32555; 36415; 36600; 71045; 71275; 80048; 80053; 80061; 82803-TC; 82947-TC; 82962; 83036; 83880; 84157-TC; 84443-TC; 84484; 85025; 85379; 85610-TC; 85730-TC; 87070-TC; 87116; 88108; 88305; 88313; 89051-TC; 89060-TC; 93005; 93306; 93970; 99285; C1729; G0378; J0696; J1940; J2001; J2270; J7060; Q9967

== ENCOUNTER 2019-12-20 06:54 | Emergency (ER) | payer OTHER ==
[~2019-12-20] VITALS: Ht 160 cm; Wt 54.4 kg
[~2019-12-20 06:54] MED LIST: ASPI-1153 PO; COR12.5 PO; FURO-149 PO; GLIP2.5T3 PO; LIP10 PO; LOSA50TA3 PO; POTA20TA83 PO; SPIR25TA PO
[2019-12-20 07:19] VITALS: BP_SYST 95
--- NOTE | 2019-12-20 07:19 | NUR ---
Patient to ER bed 5 to gown for evaluation. Side rails up. Assumed care.
--- NOTE | 2019-12-20 07:30 | NUR ---
Medication reconciliation completed with information provided by PT. Any prior medication reconciliation on file was reviewed and corrected.
--- NOTE | 2019-12-20 07:32 | NUR ---
Patient arrived via POV, with family. Patient AAOx4, and ambulatory. Patient c/c of weakness, dizziness, "heaviness in head," bilateral lower extremity, and finger tip tingling. Patient states she was just admitted as an inpatient and discharged on 12/16/2019. Patient states she has a history of DMII, diagnosed 10 years ago, non-compliant for past 4-6 months. Patient states she came in on 12/11/2019 due to bilateral lower extremity swelling. Pain increased in her lower extremities, toes, after swelling has reduced. Small scabs noted to upper foot, states that is where she was leaking fluid from. Patient states she was started on Lasix and diagnosed with heart failure. States she was told she could only drink 2 small glasses of water per day. Patient notes loose bowel movements, no diarrhea or liquid stool, just more loose than she normally has. Education provided regarding fluid restriction being 1600-1800mL of fluids per day. Patient placed on classroom monitor. Vital signs are taken. BP 107/44 HR 73 O2 100 RR 18. Patient given blanket for comfort. Will continue to follow up and monitor.
[2019-12-20] MEDS ORDERED: GLU500 PO (07:37)
[2019-12-20] MEDS ORDERED: TRAZ-250 PO (07:37)
--- NOTE | 2019-12-20 07:44 | NUR ---
ER at bedside examining patient.
[2019-12-20] MEDS ORDERED: NS 500 ML IV ONE (08:00)
[2019-12-20] MEDS ORDERED: ONDANSETRON 4 MG ODT TAB PO ONE (08:00)
[2019-12-20] MEDS ORDERED: traMADol HCL HCL 50 MG TABLET (ULTRAM) PO ONE (08:00)
[2019-12-20 08:14] LABS: BASOPHILS # (AUTO) 0.1 K/uL (0.0-0.2); BASOPHILS % (AUTO) 0.8 % (0.0-2.0); EOSINOPHILS # (AUTO) 0.1 K/uL (0.0-0.4); EOSINOPHILS % (AUTO) 1.7 % (0.0-4.0); HEMATOCRIT 42.1 % (36-48); HEMOGLOBIN 14.1 g/dL (12.0-16.0); LYMPHOCYTES # (AUTO) 1.1 K/uL (1.0-5.5); LYMPHOCYTES % (AUTO) 17.8 % (20.5-51.5); MEAN CORPUSCULAR HEMOGLOBIN 29 pg (27-31); MEAN CORPUSCULAR HGB CONC 34 % (32-36); MEAN CORPUSCULAR VOLUME 87 fL (79.0-98.0); MONOCYTES # (AUTO) 0.7 K/uL (0.0-1.0); MONOCYTES % (AUTO) 11.6 % (1.7-9.3); NEUTROPHILS # (AUTO) 4.3 K/uL (1.8-7.7); NEUTROPHILS % (AUTO) 68.1 % (40.0-70.0); PLATELET COUNT (AUTO) 223 K/uL (130-430); RED BLOOD CELL COUNT(AUTO) 4.86 MIL/uL (4.2-6.2); RED CELL DISTRIBUTION WIDTH 13.5 % (9.0-15.0); WHITE BLOOD COUNT (AUTO) 6.3 K/uL (4.8-10.8)
--- NOTE | 2019-12-20 08:26 | NUR ---
Patient given PO pain medication and nausea medication. Patient tolerated well. Will continue to follow up and monitor.
--- NOTE | 2019-12-20 08:33 | NUR ---
Patient given urine specimen cup with wipes for collection.
[2019-12-20 08:53] LABS: ANION GAP 9 (5-15); CALCIUM 9.4 mg/dL (8.4-11.0); CHLORIDE 95 mmol/L (98-107); CREATININE 1.16 mg/dL (0.55-1.30); GLUCOSE 195 mg/dL (70-99); POTASSIUM 4.3 mmol/L (3.5-5.1); SODIUM SERUM 133 mmol/L (136-145); UREA NITROGEN, BLOOD 38 mg/dL (8-21)
--- NOTE | 2019-12-20 08:53 | NUR ---
Called for patient a breakfast tray. Family and patient made aware. Will continue to follow up.
--- NOTE | 2019-12-20 09:02 | NUR ---
Patient ambulatory to restroom with cane and assistance from son. Patient states no dizziness or lightheadedness with ambulation. Patient took urine cup for collection of specimen.
--- NOTE | 2019-12-20 09:10 | NUR ---
Patients breakfast tray arrived. Patient sitting upright at bedside to eat. Patient resumed on rubber cutting machine tender. Family remains at bedside for comfort and safety. Will continue to follow up and monitor.
[2019-12-20 09:31] LABS: BILIRUBIN,URINE NEGATIVE (NEGATIVE); BLOOD, URINE NEGATIVE (NEGATIVE); CLARITY/URINE CLEAR (CLEAR); COLOR,URINE YELLOW (YELLOW); GLUCOSE,URINE NEGATIVE (NEGATIVE); KETONES,URINE NEGATIVE (NEGATIVE); LEUKOCYTE ESTERASE ,URINE NEGATIVE (NEGATIVE); NITRITE, URINE NEGATIVE (NEGATIVE); PROTEIN URINE NEGATIVE (NEGATIVE); UROBILINOGEN,URINE 0.2 (0.2-1.0)
--- NOTE | 2019-12-20 10:15 | NUR ---
Patient aware we are waiting for results and for Dr. Miller to review. Will continue to follow up and monitor.
[2019-12-20 11:05] VITALS: BP_SYST 110
--- NOTE | 2019-12-20 11:05 | NUR ---
Patient given written and verbal discharge instructions and verbalizes understanding. ER MD discussed with patient the results and treatment provided. Patient in stable condition. ID arm band removed. IV catheter removed intact and dressing applied, no active bleeding. Rx of Tramadol, Colace, Neurontin, and Zofran given. Patient educated on pain management and to follow up with PMD. Pain Scale 5/10. Opportunity for questions provided and answered. Medication side effect fact sheet provided.
== END 2019-12-20 11:05 | disposition home or self-care (01) ==
LOC: SED 06:54
DX: M79.605 Pain in left leg (principal); M79.604 Pain in right leg; E11.9 Type 2 diabetes mellitus without complications; Z79.82 Long term (current) use of aspirin; Z79.899 Other long term (current) drug therapy
CPT/HCPCS: 36415; 71045; 80048; 81003; 82962; 83880; 84484; 85025; 93005; 99284; J7030; J7040; Q0162

== ENCOUNTER 2021-04-25 09:45 | Inpatient (IN) | payer OTHER, SELFPAY ==
[~2021-04-25] VITALS: Ht 154.9 cm; Wt 56.0 kg
[~2021-04-25 09:45] MED LIST changes: -ASPI-1153 PO; +ASPI-1393 PO; +GLU500 PO; +TRAZ-250 PO
[2021-04-25 09:48] VITALS: BP_SYST 141
[2021-04-25] MEDS ORDERED: ASPIRIN 81 MG TAB.CHEW PO ONE (10:00)
[2021-04-25] MEDS ORDERED: NITROGLYCERIN 1 INCH (GM) OINT. TD ONE (10:00)
[2021-04-25] MEDS ORDERED: FUROSEMIDE 40 MG/4 ML VIAL IVP ONE (10:00)
[2021-04-25] MEDS ORDERED: NITROGLYCERIN 0.4 MG TAB.SUBL SL ONE (10:00)
[2021-04-25 10:22] LABS: BASOPHILS # (AUTO) 0.1 K/uL (0.0-0.2); EOSINOPHILS % (AUTO) 0.7 % (0.0-4.0); HEMATOCRIT 46.9 % (36-48); HEMOGLOBIN 15.6 g/dL (12.0-16.0); LYMPHOCYTES # (AUTO) 1.6 K/uL (1.0-5.5); LYMPHOCYTES % (AUTO) 29.5 % (20.5-51.5); MEAN CORPUSCULAR HEMOGLOBIN 29 pg (27-31); MEAN CORPUSCULAR HGB CONC 33 % (32-36); MEAN CORPUSCULAR VOLUME 86 fL (79.0-98.0); MONOCYTES # (AUTO) 0.5 K/uL (0.0-1.0); MONOCYTES % (AUTO) 9.4 % (1.7-9.3); NEUTROPHILS # (AUTO) 3.3 K/uL (1.8-7.7); NEUTROPHILS % (AUTO) 59.4 % (40.0-70.0); PLATELET COUNT (AUTO) 161 K/uL (130-430); RED BLOOD CELL COUNT(AUTO) 5.44 MIL/uL (4.2-6.2); RED CELL DISTRIBUTION WIDTH 15.9 % (9.0-15.0); WHITE BLOOD COUNT (AUTO) 5.5 K/uL (4.8-10.8)
[2021-04-25 10:42] LABS: ANION GAP 12 (5-15); CALCIUM 9.6 mg/dL (8.4-11.0); CHLORIDE 105 mmol/L (98-107); CREATININE 0.88 mg/dL (0.55-1.30); GLUCOSE 153 mg/dL (70-99); POTASSIUM 4.5 mmol/L (3.5-5.1); SODIUM SERUM 141 mmol/L (136-145); UREA NITROGEN, BLOOD 22 mg/dL (8-21)
[2021-04-25 10:48] LABS: ALANINE AMINOTRANSFERASE 57 U/L (12-78); ALBUMIN 3.4 g/dL (3.4-4.8); ASPARTATE AMINOTRANSFERASE 71 U/L (10-37); TOTAL BILIRUBIN 1.7 mg/dL (0.0-1.0)
[2021-04-25] MEDS ORDERED: LIP20 PO (11:31)
[2021-04-25] MEDS ORDERED: LOSA100T3 PO (11:32)
[2021-04-25] MEDS ORDERED: CARV25TA55 PO (11:32)
[2021-04-25] MEDS ORDERED: GLU500 PO (11:33)
[2021-04-25] MEDS ORDERED: SPIR25TA6 PO (11:34)
[2021-04-25] MEDS ORDERED: DEXTROSE 50% JECT 50 ML DISP.SYRIN IVP PRN (12:15)
[2021-04-25] MEDS ORDERED: LOSARTAN POTASSIUM 50 MG TABLET (COZAAR) PO ONE (12:30)
[2021-04-25] MEDS: metFORMIN HCL 500 MG TABLET PO SCH ×2 (12:30→18:23)
[2021-04-25] MEDS ORDERED: CARVEDILOL 12.5 MG TABLET (COREG) PO ONE (12:30)
[2021-04-25] MEDS ORDERED: POTASSIUM CHLORIDE 20 MEQ TAB.PRT.SR PO ONE (12:30)
[2021-04-25] MEDS ORDERED: glipiZIDE XL 5 MG TAB ( GLUCOTROL XL) PO ONE (12:41)
[2021-04-25 12:47] VITALS: BP_SYST 146
[2021-04-25] MEDS ORDERED: glipiZIDE XL 2.5 MG/TAB (GLUCOTROL XL) PO ONE (13:00)
[2021-04-25] MEDS ORDERED: NALOXONE HCL 0.4 MG/ML AMP (NARCAN) IVP PRN (13:15)
[2021-04-25] MEDS ORDERED: ONDANSETRON HCL 4 MG/2 ML VIAL IVP PRN (13:15)
[2021-04-25] MEDS ORDERED: MORPHINE 2 MG/ML INJ. SYRINGE IVP PRN ×2 (13:15→14:30)
[2021-04-25] MEDS ORDERED: MORPHINE 2 MG/ML INJ. SYRINGE ONE (13:28)
[2021-04-25] MEDS ORDERED: ONDANSETRON HCL 4 MG/2 ML VIAL ONE (13:28)
[2021-04-25] MEDS ORDERED: ACETAMINOPHEN 325 MG TABLET PO PRN (14:30)
[2021-04-25] MEDS ORDERED: MORPHINE 4 MG INJ. 4 MG/ML VIAL IVP PRN (14:30)
[2021-04-25 15:52] VITALS: BP_SYST 136
[2021-04-25] MEDS: traZODone HCL 50 MG TABLET (DESYREL) PO SCH (20:24)
[2021-04-25 20:30] VITALS: BP_SYST 131
[2021-04-25] MEDS: FUROSEMIDE 40 MG/4 ML VIAL IVP SCH (20:32)
[2021-04-25] MEDS: CARVEDILOL 12.5 MG TABLET (COREG) PO SCH (20:32)
[2021-04-25] MEDS: ONDANSETRON HCL 4 MG/2 ML VIAL IVP PRN (20:33)
[2021-04-25] MEDS ORDERED: SPIRONOLACTONE 25 MG TABLET (ALDACTONE) PO SCH (21:00)
[2021-04-25] MEDS: INSULIN REGULAR, HUMAN 100 UNITS/ML, 10 ML VIAL (humuLIN R) SUBCUT PRN (22:58)
[2021-04-26 00:05] VITALS: BP_SYST 115
[2021-04-26] MEDS: INSULIN REGULAR, HUMAN 100 UNITS/ML, 10 ML VIAL (humuLIN R) SUBCUT PRN ×2 (06:04→12:21)
[2021-04-26 07:14] LABS: ANION GAP 14 (5-15); CALCIUM 9.2 mg/dL (8.4-11.0); CHLORIDE 103 mmol/L (98-107); CREATININE 0.85 mg/dL (0.55-1.30); GLUCOSE 197 mg/dL (70-99); POTASSIUM 4.1 mmol/L (3.5-5.1); SODIUM SERUM 142 mmol/L (136-145); UREA NITROGEN, BLOOD 21 mg/dL (8-21)
[2021-04-26 08:00] VITALS: BP_SYST 147
[2021-04-26] MEDS: metFORMIN HCL 500 MG TABLET PO SCH ×3 (08:39→17:52)
[2021-04-26] MEDS: ASPIRIN 81 MG TABLET(ECOTRIN) PO SCH (08:41)
[2021-04-26] MEDS: glipiZIDE XL 2.5 MG/TAB (GLUCOTROL XL) PO SCH (08:42)
[2021-04-26] MEDS: POTASSIUM CHLORIDE 20 MEQ TAB.PRT.SR PO SCH (08:42)
[2021-04-26] MEDS: CARVEDILOL 12.5 MG TABLET (COREG) PO SCH ×2 (08:43→20:34)
[2021-04-26] MEDS: SPIRONOLACTONE 25 MG TABLET (ALDACTONE) PO SCH (08:43)
[2021-04-26] MEDS: FUROSEMIDE 40 MG/4 ML VIAL IVP SCH ×2 (08:44→20:34)
[2021-04-26] MEDS: ATORVASTATIN 20 MG TABLET PO SCH (08:45)
[2021-04-26] MEDS ORDERED: ATORVASTATIN 10 MG TABLET PO SCH (09:00)
[2021-04-26] MEDS ORDERED: LOSARTAN POTASSIUM 50 MG TABLET (COZAAR) PO SCH (09:00)
[2021-04-26] MEDS ORDERED: IPRATROPIUM BROM 0.5 MG/2.5 ML VIAL.NEB (ATROVENT) INH PRN (09:15)
[2021-04-26] MEDS ORDERED: ALBUTEROL SULFATE 0.083% 2.5 MG/3 ML VIAL.NEB INH PRN (09:15)
[2021-04-26 10:25] VITALS: BP_SYST 147
[2021-04-26] MEDS: cefTRIAXone 1 GM IVPB PREMIX 50 ML IV SCH (11:02)
[2021-04-26] MEDS: SACUBITRIL/VALSARTAN 24 MG-26 MG 1 TABLET PO SCH ×2 (11:02→20:39)
[2021-04-26] MEDS: AZITHROMYCIN 500 MG in NS 250 ML IV SCH (11:23)
[2021-04-26] MEDS: IPRATROPIUM BROM 0.5 MG/2.5 ML VIAL.NEB (ATROVENT) INH SCH ×4 (11:30→23:00)
[2021-04-26] MEDS: ALBUTEROL SULFATE 0.083% 2.5 MG/3 ML VIAL.NEB INH SCH ×4 (11:30→23:00)
[2021-04-26 12:23] VITALS: BP_SYST 110
[2021-04-26 13:19] LABS: BODY FLUID COLOR YELLOW (LT YELLOW); BODY FLUID SOURCE/ TYPE PLEURAL; SOURCE/TYPE ,BODY FLUID PARACENTESIS
[2021-04-26 13:20] LABS: BODY FLUID TOTAL VOLUME 860 mL
[2021-04-26 14:51] LABS: BF APPEARANCE UNSPUN HAZY (CLEAR)
[2021-04-26 14:52] LABS: EOSINOPHIL, BODY FLUID 0 %; LYMPHOCYTES, BODY FLUID 31 %; MONOCYTES,BODY FLUID 44 %; NEUTROPHIL, BODY FLUID 25 %
[2021-04-26 14:54] LABS: RBC, BODY FLUID 13128 /uL; WBC, BODY FLUID 79 /uL
[2021-04-26 16:45] VITALS: BP_SYST 114
[2021-04-26 20:31] VITALS: BP_SYST 113
[2021-04-26] MEDS: traZODone HCL 50 MG TABLET (DESYREL) PO SCH (20:39)
[2021-04-26] MEDS: ONDANSETRON HCL 4 MG/2 ML VIAL IVP PRN (23:45)
[2021-04-27] MEDS: ALBUTEROL SULFATE 0.083% 2.5 MG/3 ML VIAL.NEB INH SCH ×6 (03:00→23:00)
[2021-04-27] MEDS: IPRATROPIUM BROM 0.5 MG/2.5 ML VIAL.NEB (ATROVENT) INH SCH ×6 (03:00→23:00)
[2021-04-27 06:30] LABS: BASOPHILS % (AUTO) 0.8 % (0.0-2.0); EOSINOPHILS % (AUTO) 0.9 % (0.0-4.0); HEMATOCRIT 42.8 % (36-48); HEMOGLOBIN 14.2 g/dL (12.0-16.0); LYMPHOCYTES % (AUTO) 21.2 % (20.5-51.5); MEAN CORPUSCULAR HEMOGLOBIN 28 pg (27-31); MEAN CORPUSCULAR HGB CONC 33 % (32-36); MEAN CORPUSCULAR VOLUME 86 fL (79.0-98.0); MONOCYTES # (AUTO) 0.4 K/uL (0.0-1.0); MONOCYTES % (AUTO) 8.6 % (1.7-9.3); NEUTROPHILS # (AUTO) 3.4 K/uL (1.8-7.7); NEUTROPHILS % (AUTO) 68.5 % (40.0-70.0); PLATELET COUNT (AUTO) 137 K/uL (130-430); RED CELL DISTRIBUTION WIDTH 15.7 % (9.0-15.0); WHITE BLOOD COUNT (AUTO) 4.9 K/uL (4.8-10.8)
[2021-04-27 06:46] LABS: ALANINE AMINOTRANSFERASE 37 U/L (12-78); ALBUMIN 3.1 g/dL (3.4-4.8); ANION GAP 9 (5-15); CALCIUM 8.9 mg/dL (8.4-11.0); CHLORIDE 104 mmol/L (98-107); CREATININE 0.88 mg/dL (0.55-1.30); GLUCOSE 134 mg/dL (70-99); POTASSIUM 3.9 mmol/L (3.5-5.1); SODIUM SERUM 141 mmol/L (136-145); TOTAL BILIRUBIN 1.1 mg/dL (0.0-1.0); UREA NITROGEN, BLOOD 24 mg/dL (8-21)
[2021-04-27 07:24] LABS: ASPARTATE AMINOTRANSFERASE 32 U/L (10-37)
[2021-04-27 07:46] LABS: CHOLESTEROL 164 mg/dL (<200); HDL CHOLESTEROL 37 mg/dL (>55); LDL CHOLESTEROL 114 mg/dL (<100); TRIGLYCERIDES 83 mg/dL (30-150)
[2021-04-27] MEDS: ASPIRIN 81 MG TABLET(ECOTRIN) PO SCH (08:22)
[2021-04-27] MEDS: FUROSEMIDE 40 MG/4 ML VIAL IVP SCH ×2 (08:22→17:22)
[2021-04-27] MEDS: CARVEDILOL 12.5 MG TABLET (COREG) PO SCH ×2 (08:23→22:19)
[2021-04-27] MEDS: SPIRONOLACTONE 25 MG TABLET (ALDACTONE) PO SCH (08:23)
[2021-04-27] MEDS: metFORMIN HCL 500 MG TABLET PO SCH ×3 (08:23→17:09)
[2021-04-27] MEDS: POTASSIUM CHLORIDE 20 MEQ TAB.PRT.SR PO SCH (08:24)
[2021-04-27] MEDS: cefTRIAXone 1 GM IVPB PREMIX 50 ML IV SCH (08:25)
[2021-04-27] MEDS: ATORVASTATIN 20 MG TABLET PO SCH (08:26)
[2021-04-27] MEDS: SACUBITRIL/VALSARTAN 24 MG-26 MG 1 TABLET PO SCH ×2 (08:27→22:19)
[2021-04-27 08:38] VITALS: BP_SYST 123
[2021-04-27 09:00] LABS: BODY FLUID GLUCOSE 208 mg/dL; BODY FLUID TOTAL PROTEIN 2.4 g/dL
[2021-04-27] MEDS ORDERED: metOLazone 5 MG TABLET PO ONE (09:00)
[2021-04-27] MEDS: glipiZIDE XL 2.5 MG/TAB (GLUCOTROL XL) PO SCH (10:26)
[2021-04-27] MEDS: AZITHROMYCIN 500 MG in NS 250 ML IV SCH (10:27)
[2021-04-27 12:03] VITALS: BP_SYST 132
[2021-04-27 16:02] VITALS: BP_SYST 123
[2021-04-27 20:00] VITALS: BP_SYST 128
[2021-04-27] MEDS: traZODone HCL 50 MG TABLET (DESYREL) PO SCH (21:00)
[2021-04-27] MEDS ORDERED: ZOLPIDEM TARTRATE 5 MG TABLET PO ONE (22:00)
[2021-04-28 00:10] VITALS: BP_SYST 107
[2021-04-28] MEDS: IPRATROPIUM BROM 0.5 MG/2.5 ML VIAL.NEB (ATROVENT) INH SCH ×4 (03:00→15:00)
[2021-04-28] MEDS: ALBUTEROL SULFATE 0.083% 2.5 MG/3 ML VIAL.NEB INH SCH ×4 (03:00→15:00)
[2021-04-28] MEDS: FUROSEMIDE 40 MG/4 ML VIAL IVP SCH (06:18)
[2021-04-28 08:06] VITALS: BP_SYST 103
[2021-04-28] MEDS ORDERED: FUROSEMIDE 40 MG TABLET PO SCH (09:00)
[2021-04-28] MEDS: CARVEDILOL 12.5 MG TABLET (COREG) PO SCH (09:00)
[2021-04-28] MEDS: SACUBITRIL/VALSARTAN 24 MG-26 MG 1 TABLET PO SCH (09:00)
[2021-04-28] MEDS: SPIRONOLACTONE 25 MG TABLET (ALDACTONE) PO SCH (09:00)
[2021-04-28] MEDS: metFORMIN HCL 500 MG TABLET PO SCH (09:12)
[2021-04-28] MEDS: ATORVASTATIN 20 MG TABLET PO SCH (09:12)
[2021-04-28] MEDS: POTASSIUM CHLORIDE 20 MEQ TAB.PRT.SR PO SCH (09:12)
[2021-04-28] MEDS: ASPIRIN 81 MG TABLET(ECOTRIN) PO SCH (09:13)
[2021-04-28] MEDS: glipiZIDE XL 2.5 MG/TAB (GLUCOTROL XL) PO SCH (09:14)
[2021-04-28] MEDS: cefTRIAXone 1 GM IVPB PREMIX 50 ML IV SCH (09:15)
[2021-04-28] MEDS: AZITHROMYCIN 500 MG in NS 250 ML IV SCH (10:00)
[2021-04-28 11:35] VITALS: BP_SYST 110
[2021-04-28 12:59] VITALS: BP_SYST 110
[2021-04-28] MEDS ORDERED: SPIR25TA PO (13:31)
[2021-04-28] MEDS ORDERED: SACU1TAB PO (13:31)
[2021-04-28] MEDS ORDERED: COR12.5 PO (13:31)
== END 2021-04-28 14:40 | disposition home or self-care (01) | DRG 291 ==
LOC: SED 09:45 → STU 11:24
PROVIDERS: ADMIT Internal Medicine Hospice and Palliative Medicine; ATTEND Internal Medicine Hospice and Palliative Medicine
DX: I11.0 Hypertensive heart disease with heart failure (principal); J18.9 Pneumonia, unspecified organism; J91.8 Pleural effusion in other conditions classified elsewhere; I50.43 Acute on chronic combined systolic (congestive) and diastolic (congestive) heart failure; I42.0 Dilated cardiomyopathy; E11.9 Type 2 diabetes mellitus without complications; F03.90 Unspecified dementia, unspecified severity, without behavioral disturbance, psychotic disturbance, mood disturbance, and anxiety; F32.9 Major depressive disorder, single episode, unspecified; I25.10 Atherosclerotic heart disease of native coronary artery without angina pectoris; Z20.822 Contact with and (suspected) exposure to COVID-19; Z91.14 Patient's other noncompliance with medication regimen; Z79.899 Other long term (current) drug therapy; Z79.82 Long term (current) use of aspirin
CPT/HCPCS: 32555; 36415; 71045; 80048; 80053; 80061; 82947; 82962; 83880; 84157; 84484; 85025; 85379; 87070-TC; 87116; 88108; 88305; 89051-TC; 89060-TC; 93005; 93306; 93970; 94640; 94760; 96374; 99285; C1729; G0378; J0456; J0696; J1815; J1940; J2270; J2405; J7050; J7613

== ENCOUNTER 2021-09-25 08:13 | Inpatient (IN) | payer OTHER, SELFPAY ==
[~2021-09-25] VITALS: Ht 154.9 cm; Wt 58.1 kg
--- NOTE | 2021-09-25 06:40 | NUR ---
CLOSING NOTES; pt. assisted to the commode. IV site patent. fall risk. needs attended. BS checked 141. call liogdick at bedside. will endorse to incoming shift. Addendum: 09/26/21 at 0647 by Heidi Heart RN 09/26/21 closing notes
[~2021-09-25 08:13] MED LIST changes: -GLU500 PO; -LIP10 PO; +LIP20 PO; -LOSA50TA3 PO; +SACU1TAB PO
[2021-09-25 08:30] VITALS: BP_SYST 122
--- NOTE | 2021-09-25 08:45 | NUR ---
Patient to ER bed 4 to gown for evaluation. Side rails up. Report given to ELIJAH.
--- NOTE | 2021-09-25 09:00 | NUR ---
DR PERDUE IN TO ASSESS
--- NOTE | 2021-09-25 09:00 | NUR ---
LABS, CXR COMPLETED, IV HL PLACED 20 GUAGE LT HAND
[2021-09-25 09:14] LABS: BASOPHILS % (AUTO) 0.9 % (0.0-2.0); EOSINOPHILS % (AUTO) 1.2 % (0.0-4.0); HEMATOCRIT 46.4 % (36-48); HEMOGLOBIN 15.5 g/dL (12.0-16.0); LYMPHOCYTES # (AUTO) 1.1 K/uL (1.0-5.5); LYMPHOCYTES % (AUTO) 27.7 % (20.5-51.5); MEAN CORPUSCULAR HEMOGLOBIN 30 pg (27-31); MEAN CORPUSCULAR HGB CONC 33 % (32-36); MEAN CORPUSCULAR VOLUME 90 fL (79.0-98.0); MONOCYTES # (AUTO) 0.4 K/uL (0.0-1.0); MONOCYTES % (AUTO) 9.5 % (1.7-9.3); NEUTROPHILS # (AUTO) 2.4 K/uL (1.8-7.7); NEUTROPHILS % (AUTO) 60.7 % (40.0-70.0); PLATELET COUNT (AUTO) 127 K/uL (130-430); RED BLOOD CELL COUNT(AUTO) 5.14 MIL/uL (4.2-6.2); RED CELL DISTRIBUTION WIDTH 17.7 % (9.0-15.0)
[2021-09-25 09:43] LABS: ANION GAP 7 (5-15); CALCIUM 9.5 mg/dL (8.4-11.0); CHLORIDE 98 mmol/L (98-107); CREATININE 0.82 mg/dL (0.55-1.30); GLUCOSE 197 mg/dL (70-99); SODIUM SERUM 135 mmol/L (136-145); UREA NITROGEN, BLOOD 21 mg/dL (8-21)
[2021-09-25 09:47] LABS: POTASSIUM 3.9 mmol/L (3.5-5.1)
[2021-09-25 09:54] LABS: ALANINE AMINOTRANSFERASE 56 U/L (12-78); ALBUMIN 3.3 g/dL (3.4-4.8); ASPARTATE AMINOTRANSFERASE 63 U/L (10-37)
[2021-09-25] MEDS ORDERED: FUROSEMIDE 40 MG/4 ML VIAL IVP ONE (10:15)
[2021-09-25] MEDS ORDERED: MORPHINE 2 MG/ML INJ. SYRINGE IVP PRN ×2 (10:30→11:30)
--- NOTE | 2021-09-25 10:56 | NUR ---
TELE ADMIT UNDER JANDIAL BY JODY FOR CHF
[2021-09-25] MEDS ORDERED: MAGNESIUM SULFATE 50 ML IV PRN (11:30)
[2021-09-25] MEDS ORDERED: ACETAMINOPHEN 325 MG TABLET PO PRN (11:30)
[2021-09-25] MEDS ORDERED: POTASSIUM CHLORIDE 20 MEQ TAB.PRT.SR PO PRN (11:30)
[2021-09-25] MEDS ORDERED: MUPIROCIN 2% TOPICAL OINTMENT 22 GM NS PRN (11:30)
[2021-09-25] MEDS ORDERED: DEXTROSE 50% JECT 50 ML DISP.SYRIN IVP PRN (11:30)
[2021-09-25] MEDS ORDERED: DOCUSATE SODIUM 100 MG CAPSULE PO PRN (11:30)
[2021-09-25] MEDS ORDERED: NALOXONE HCL 0.4 MG/ML AMP (NARCAN) IVP PRN ×2 (11:30)
[2021-09-25] MEDS ORDERED: LORazepam 2 MG/ML VIAL IVP PRN (11:30)
[2021-09-25] MEDS ORDERED: ONDANSETRON HCL 4 MG/2 ML VIAL IVP PRN (11:30)
--- NOTE | 2021-09-25 12:52 | NUR ---
Patient will be admitted to care of DORITA. Admitted to TELE unit. Will go to room 107. Belongings list completed. Complete and up to date summary report printed. SBAR report to be given at bedside with opportunity for questions.
[2021-09-25] MEDS ORDERED: CARVEDILOL 12.5 MG TABLET (COREG) PO ONE (13:00)
[2021-09-25] MEDS ORDERED: ATORVASTATIN 20 MG TABLET PO ONE (13:00)
[2021-09-25] MEDS ORDERED: ASPIRIN 81 MG TABLET(ECOTRIN) PO ONE (13:00)
[2021-09-25] MEDS ORDERED: glipiZIDE XL 2.5 MG/TAB (GLUCOTROL XL) PO ONE (13:00)
[2021-09-25] MEDS ORDERED: SPIRONOLACTONE 25 MG TABLET (ALDACTONE) PO ONE (13:00)
[2021-09-25 13:23] VITALS: BP_SYST 114
--- NOTE | 2021-09-25 13:48 | NUR ---
CONSULT PULMO. CONSULTING MD: DR. FU DIALED: [phone] PERSON NOTIFIED: DR. FU ORDERED BY: DR. BISHOP
--- NOTE | 2021-09-25 13:50 | NUR ---
CONSULT CARDIO. CONSULTING MD: DR. MONDRAGON DIALED: [phone] PERSON NOTIFIED: TALAT ORDERED BY: DR. BISHOP
[2021-09-25] MEDS: LEVOFLOXACIN IN DEXTROSE 5 % 100 ML IV SCH (15:06)
--- NOTE | 2021-09-25 15:23 | NUR ---
ADMIT NOTE Late entry due to pt care 13:00 Received pt from ER to the floor with a diagnosis of chf. Admission process initiated. patient oriented to pain management, safety and call light-teach back done. 1500- denies shortness of breath. went to radiology for CT Chest
[2021-09-25] MEDS ORDERED: PANTOPRAZOLE SODIUM 40 MG TAB PO ONE (15:45)
[2021-09-25 17:00] VITALS: BP_SYST 117
[2021-09-25] MEDS: INSULIN LISPRO SLIDING SCALE 100 UNITS/ML VIAL (humaLOG) SUBCUT PRN ×2 (17:19→22:12)
--- NOTE | 2021-09-25 18:15 | NUR ---
CLOSING RECEIVED PROTONIX PO FOR C/O OF REFLUX. POOR APPETITE FOR DINNER. ONLY WANTED MELINDA.
--- NOTE | 2021-09-25 19:20 | NUR ---
CHANGE OF SHIFT; endorsed by day shift, admitted today for CHF. no acute distress. call light within reach.
[2021-09-25 20:15] VITALS: BP_SYST 98
--- NOTE | 2021-09-25 20:15 | NUR ---
NOTES:' pt. awake but been bothered by the noise outside her room. IV lock on left hand. VS checked. on cardiac surgeon shows sinus bradycardia. both hands are cool to touch, warm blanket given. noted both lower extremities swollen and pinkish in color. bed in low position. pt. been walking to the restroom with walker. informed pt will provide BSC.
[2021-09-25] MEDS: CARVEDILOL 12.5 MG TABLET (COREG) PO SCH (21:00)
[2021-09-25] MEDS: FUROSEMIDE 40 MG/4 ML VIAL IVP SCH (21:41)
[2021-09-25] MEDS: traZODone HCL 50 MG TABLET (DESYREL) PO SCH (21:42)
--- NOTE | 2021-09-25 22:00 | NUR ---
NOTES: BS checked, due emdication given icluding IV Lasix.
[2021-09-25] MEDS: MORPHINE 2 MG/ML INJ. SYRINGE IVP PRN (23:00)
--- NOTE | 2021-09-25 23:00 | NUR ---
NOTES: pt. medicated with IV Morphine for c/o bilateral lower extremities. repositioned self.
[2021-09-26] VITALS: BP_SYST 107
[2021-09-26] MEDS: ZOLPIDEM TARTRATE 5 MG TABLET PO PRN ×2 (00:43→21:04)
--- NOTE | 2021-09-26 00:45 | NUR ---
NOTES: pt. leads came off, checke dpt. was calling ,could not find her call light, saying she cant sleep, wants her Ambien. assisted to the bedside commode and voided. IV site secured with tape. pt. needs attended.
--- NOTE | 2021-09-26 04:00 | NUR ---
NOTES: pt. finally went t sleep. needs attended. condition observed.
--- NOTE | 2021-09-26 06:47 | NUR ---
CLOSING NOTES; pt. assisted to commode. IV site patent. needs attended. fall risk. call light within reach. will endorse to incoming shift.
[2021-09-26 06:56] LABS: BASOPHILS % (AUTO) 0.7 % (0.0-2.0); EOSINOPHILS % (AUTO) 0.6 % (0.0-4.0); HEMATOCRIT 46.6 % (36-48); HEMOGLOBIN 15.5 g/dL (12.0-16.0); LYMPHOCYTES # (AUTO) 0.7 K/uL (1.0-5.5); LYMPHOCYTES % (AUTO) 21.6 % (20.5-51.5); MEAN CORPUSCULAR HEMOGLOBIN 30 pg (27-31); MEAN CORPUSCULAR HGB CONC 33 % (32-36); MEAN CORPUSCULAR VOLUME 90 fL (79.0-98.0); MONOCYTES # (AUTO) 0.4 K/uL (0.0-1.0); NEUTROPHILS # (AUTO) 2.2 K/uL (1.8-7.7); NEUTROPHILS % (AUTO) 66.1 % (40.0-70.0); PLATELET COUNT (AUTO) 116 K/uL (130-430); RED CELL DISTRIBUTION WIDTH 17.4 % (9.0-15.0); WHITE BLOOD COUNT (AUTO) 3.3 K/uL (4.8-10.8)
[2021-09-26 08:00] VITALS: BP_SYST 109
[2021-09-26 08:14] LABS: ANION GAP 9 (5-15); CALCIUM 9.1 mg/dL (8.4-11.0); CHLORIDE 98 mmol/L (98-107); CREATININE 0.74 mg/dL (0.55-1.30); GLUCOSE 142 mg/dL (70-99); POTASSIUM 3.4 mmol/L (3.5-5.1); SODIUM SERUM 137 mmol/L (136-145); UREA NITROGEN, BLOOD 22 mg/dL (8-21)
[2021-09-26] MEDS: ATORVASTATIN 20 MG TABLET PO SCH (08:58)
[2021-09-26] MEDS: CARVEDILOL 12.5 MG TABLET (COREG) PO SCH ×2 (08:59→21:04)
[2021-09-26] MEDS: ASPIRIN 81 MG TABLET(ECOTRIN) PO SCH (09:00)
[2021-09-26] MEDS: PANTOPRAZOLE SODIUM 40 MG TAB PO SCH (09:00)
[2021-09-26] MEDS: SPIRONOLACTONE 25 MG TABLET (ALDACTONE) PO SCH (09:00)
[2021-09-26] MEDS: FUROSEMIDE 40 MG/4 ML VIAL IVP SCH ×2 (09:02→21:03)
[2021-09-26] MEDS: glipiZIDE XL 2.5 MG/TAB (GLUCOTROL XL) PO SCH (09:09)
--- NOTE | 2021-09-26 09:28 | NUR ---
Logo AIDA CM IP Initial Admission Assessment and Plan Last Saved By: Roro Thorpe Last Saved On: 09/26/2021 9:28 AM (PT) Created By: Roro Thorpe Created On: 09/26/2021 9:25 AM (PT) Patient Information Patient Name: IVONNE SAENZ [address]: [address] [place] [address] [place] [address] SSN: : 1945 (age 76 years) Work Phone: [phone] Gender: Female Alternative Phone: Marital Status: Other Patient's Information Was the patient able to participate in the Interview? Answers: No, patient unable to be interviewed Why was the patient unable to participate in the interview? Answers: Unable to reach patient Notes: no cell phone , no answer room If unable to reach patient, who is the contact for the interview? Include name and contact phone number Answers: Other Notes: Son Kayla Sanchez [phone] What language does the patient speak? Answers: Comoran Were hostess services used? Question is skipped due to answer to What language does the patient speak? Is this person also the contact for DCP coordination? Answers: Yes Admitting Facility Answers: *[facility] [[id number]] Admitting Diagnosis swelling of extremities Was the patient's doctor (PCP) verified with the patient? Answers: Yes (no change) Was the patient's phone/address verified with the patient? Answers: Yes (no change) Advanced Care Planning (check all that apply) Answers: Patient does NOT have advanced Care Planning. History and Prior Level of Function Prior to Admission was the Patient receiving assistance from a program and/or family/friend? Answers: Independant/Self-Care Notes: needs assist with bathing and dressing Food/Meal Prep Notes: Medications/Medication administration Notes: and son fill medication DME--PRIOR to Admission: Answers: Walker (document patient usage or frequency of use. Exp; uses walker at all times, uses walker when leaving home) Cane Cognitive--PRIOR to Admission: Answers: Alert & Orientated Home Setting--PRIOR to Admission: Answers: Private Home Notes: 2 story home, 1st level live w/spouse Was patient receiving Home Health Services prior to Admission? Answers: No Potential Barriers to Discharge Anticipated Discharge Disposition Answers: Home Notes: family said no SNF Does the patient have any potential barriers to DC? (indicate barrier & plan to address) Answers: NO, anticipate DC to previous living situations, no additional services anticipated Appointments Preferred appointment day if available: Answers: Any Day Ok Preferred appointment time if available: Question is skipped due to answer to Preferred appointment day if available: Signature Signature: Signature Date Signed: 09/26/2021 9:28 AM (PT) Signed By: Roro Thorpe Position: Inpatient Oyster Sorter Pager Number: Allscripts Generated (Scan) Page 1 of 2 Copyright 2020 [facility]. [Production([id number])]
[2021-09-26 11:35] VITALS: BP_SYST 101
[2021-09-26] MEDS: LEVOFLOXACIN IN DEXTROSE 5 % 100 ML IV SCH (12:01)
--- NOTE | 2021-09-26 15:45 | NUR ---
alert, oriented and wide awake. walked with a walker to bathroom, gait steady. US thoracentesis done this am, 750cc out, fluid sent to the lab. appetite good for all meals, both breakfast and lunch, did not appear to have an understanding of her diet, which is ccho. After the lunch, asked for more crackers. blood sugar prior to lunch, 145, did not need any coverage. both feet with noticeable swelling, on lasix ivp, diureses well.
[2021-09-26 16:27] VITALS: BP_SYST 110
[2021-09-26] MEDS: INSULIN LISPRO SLIDING SCALE 100 UNITS/ML VIAL (humaLOG) SUBCUT PRN ×2 (16:36→21:28)
[2021-09-26 16:37] LABS: BODY FLUID TOTAL PROTEIN 2.1 g/dL
--- NOTE | 2021-09-26 19:15 | NUR ---
Received SBAR report form AM shift RN. Patient is alert, oriented x 3. Communicate needs verbally. Patient uses walker to ambulate and need minimum assistance. Commode at bedside provided. Respiration even & unlabored. SpO2 97% to room air. Denies congestion or any respiratory issues. Call light within patient's reach. Continue to remind patient to call for assistance at all times.
[2021-09-26 20:00] VITALS: BP_SYST 125
[2021-09-26] MEDS: traZODone HCL 50 MG TABLET (DESYREL) PO SCH (21:04)
[2021-09-26] MEDS: MORPHINE 2 MG/ML INJ. SYRINGE IVP PRN (21:07)
--- NOTE | 2021-09-27 | NUR ---
REFUSED VITAL SIGN CHECK FOR 12 MIDNIGHT. PATIENT INFORMED RN AND STOCK RECEIVER THAT SHE DON'T WANT TO BE WOKEN UP TO HAVE HER V/S CHECKED AT 12AM. RESPECTED PATIENT'S REQUEST.
[2021-09-27 06:58] LABS: BASOPHILS % (AUTO) 0.5 % (0.0-2.0); EOSINOPHILS % (AUTO) 0.7 % (0.0-4.0); HEMATOCRIT 43.7 % (36-48); HEMOGLOBIN 14.6 g/dL (12.0-16.0); LYMPHOCYTES # (AUTO) 0.6 K/uL (1.0-5.5); LYMPHOCYTES % (AUTO) 19.1 % (20.5-51.5); MEAN CORPUSCULAR HEMOGLOBIN 30 pg (27-31); MEAN CORPUSCULAR HGB CONC 33 % (32-36); MEAN CORPUSCULAR VOLUME 90 fL (79.0-98.0); MONOCYTES # (AUTO) 0.4 K/uL (0.0-1.0); MONOCYTES % (AUTO) 12.2 % (1.7-9.3); NEUTROPHILS % (AUTO) 67.5 % (40.0-70.0); PLATELET COUNT (AUTO) 113 K/uL (130-430); RED BLOOD CELL COUNT(AUTO) 4.89 MIL/uL (4.2-6.2); RED CELL DISTRIBUTION WIDTH 17.2 % (9.0-15.0)
[2021-09-27 07:34] LABS: ANION GAP 9 (5-15); CHLORIDE 99 mmol/L (98-107); CREATININE 0.78 mg/dL (0.55-1.30); GLUCOSE 140 mg/dL (70-99); SODIUM SERUM 136 mmol/L (136-145); UREA NITROGEN, BLOOD 25 mg/dL (8-21)
--- NOTE | 2021-09-27 08:00 | NUR ---
am notes pt in bed a/ox3. denies any sob or chest pain. res even and unlabored. vitals stable. safety and fall precautions in place. not in any acute distress. poc discussed with pt. pt verbalized understanding.
[2021-09-27 08:09] VITALS: BP_SYST 137
[2021-09-27] MEDS: ATORVASTATIN 20 MG TABLET PO SCH (08:47)
[2021-09-27] MEDS: ASPIRIN 81 MG TABLET(ECOTRIN) PO SCH (08:47)
[2021-09-27] MEDS: SPIRONOLACTONE 25 MG TABLET (ALDACTONE) PO SCH (08:48)
[2021-09-27] MEDS: PANTOPRAZOLE SODIUM 40 MG TAB PO SCH (08:48)
[2021-09-27] MEDS: CARVEDILOL 12.5 MG TABLET (COREG) PO SCH ×3 (08:49→20:25)
[2021-09-27] MEDS: FUROSEMIDE 40 MG/4 ML VIAL IVP SCH ×2 (08:50→20:25)
--- NOTE | 2021-09-27 09:30 | NUR ---
md visit seen by dr [email or web address] to pt and family. daughter in law at bed side. assisted pt to bathroom with walker. pt walked steady. will continue to monitor
--- NOTE | 2021-09-27 09:52 | NUR ---
Dietitian Recommendations *Recommend: CCHO 2gm Na diet. Please see Nutritional Assessment for details.
[2021-09-27] MEDS: glipiZIDE XL 2.5 MG/TAB (GLUCOTROL XL) PO SCH (10:06)
--- NOTE | 2021-09-27 10:56 | NUR ---
PAGED PAGED SHANIKA TOLBERT AT [phone] SPOKE WITH LIAT.
[2021-09-27] MEDS ORDERED: POTASSIUM CHLORIDE 20 MEQ TAB.PRT.SR PO ONE ×2 (11:45→15:45)
[2021-09-27] MEDS: INSULIN LISPRO SLIDING SCALE 100 UNITS/ML VIAL (humaLOG) SUBCUT PRN (12:02)
[2021-09-27 12:30] VITALS: BP_SYST 99
[2021-09-27] MEDS: LEVOFLOXACIN IN DEXTROSE 5 % 100 ML IV SCH (15:05)
--- NOTE | 2021-09-27 16:00 | NUR ---
iv insertion pt c/o of old iv hurting . new iv line started by juju salmeron on rt hand #20 . with good blood return. no s/s of infiltration noted. flushed well. old iv on left hand removed clean dressing applied . pt tolerated well
[2021-09-27 16:23] VITALS: BP_SYST 124
--- NOTE | 2021-09-27 16:27 | NUR ---
ROUNDS PT STABLE .DENIES ANY PAIN OR ORTHER DISCOMFORT.KEPT COMFORTABLE. AT BED SIDE.WILL CONTINUE TO MONITOR
--- NOTE | 2021-09-27 18:59 | NUR ---
closing notes pt in bed a/ox3. denies any sob or chest pain. res even and unlabored. vitals stable. safety and fall precautions in place. not in any acute distress. poc discussed with pt. pt verbalized understanding.safety/fall precautions in place.will endorse to ight nurse
--- NOTE | 2021-09-27 19:30 | NUR ---
opening note received report from day rn. pt sitting in bed requesting her bread roll to be warmed up. pt ambulatory. pt c/o pain to bilateral swollen legs. pt requesting ambien when ready for bed. right wrist iv intact and flushes well. no signs of infiltration noted. bed in lowest and locked postion. safety precautions in place. call light within reach. will continue to monitor.
[2021-09-27 20:00] VITALS: BP_SYST 108
[2021-09-27] MEDS: traZODone HCL 50 MG TABLET (DESYREL) PO SCH (20:23)
[2021-09-27] MEDS: ZOLPIDEM TARTRATE 5 MG TABLET PO PRN (22:23)
[2021-09-28 00:08] VITALS: BP_SYST 130
--- NOTE | 2021-09-28 02:51 | NUR ---
ROUNDS PT FOUND SITTING IN CHAIR. PT CONFUSED, AND STATES, "IS THIS WHERE THE GIRLS GET DRESSED TO DANCE?". PT REORIENTED TO LOCATION AND EVENT. PT STATES, "I KNOW". PT STARES AROUND ROOM AND STATES, "WHOS BABY IS THAT?" "I JUST WANT TO COUNT ALL THE PEOPLE IN THE ROOM. PT REORIENTED AND HELPED BACK TO BED. WHEN ASKED IF PT KNEW WHERE SHE WAS, PT STATES, "[facility]". PT IN BED LAYING DOWN. PT CLOSES EYES AND RESPIRATIONS EVEN AND UNLABORED ON RA. NO SIGNS OF DISTRESS NOTED. BED IN LOWEST AND LOCKED POSITION. CALL LIGHT WITHIN REACH. SAFETY PRECAUTIONS IN PLACE. WILL CONTINUE TO MONITOR.
--- NOTE | 2021-09-28 06:09 | NUR ---
ROUNDS BS TAKEN: 141. NO COVERAGE NEEDED PT IS SPEAKING AUSTRIAN AT THIS TIME. PT IS ASKING WHAT KIND OF DEMOCRAT WAS THROWN NEXT DOOR. PT STATES SHE SAW GIRLS IN DRESSES. PT REORIENTED. ELECTRODES AND TELE BOX OFF. GOWN OFF. TELE MONITOR AND GOWN PUT ON. PT TOLERATED WELL. PT EDUCATED ON IMPORTANCE OF KEEPING TELE MONITOR ON. PT STATES, "I DIDNT DO IT". BED IN LOWEST AND LOCKED POSITION. CALL LIGHT WITHIN REACH. WILL CONTINUE TO MONITOR.
--- NOTE | 2021-09-28 06:44 | NUR ---
closing note pt laying in bed resting with her eyes closed. respirations even and unlabored on ra. no signs of distress noted. right wrist iv intact and flushes well. no signs of infiltration noted. bed in lowest and locked position. safety precautions in place. call light within reach. will endorse to day rn.
[2021-09-28 06:58] LABS: BASOPHILS % (AUTO) 0.4 % (0.0-2.0); EOSINOPHILS % (AUTO) 0.7 % (0.0-4.0); HEMATOCRIT 46.8 % (36-48); HEMOGLOBIN 15.6 g/dL (12.0-16.0); LYMPHOCYTES # (AUTO) 1.1 K/uL (1.0-5.5); LYMPHOCYTES % (AUTO) 25.6 % (20.5-51.5); MEAN CORPUSCULAR HEMOGLOBIN 30 pg (27-31); MEAN CORPUSCULAR HGB CONC 33 % (32-36); MEAN CORPUSCULAR VOLUME 90 fL (79.0-98.0); MONOCYTES # (AUTO) 0.5 K/uL (0.0-1.0); MONOCYTES % (AUTO) 11.2 % (1.7-9.3); NEUTROPHILS # (AUTO) 2.8 K/uL (1.8-7.7); NEUTROPHILS % (AUTO) 62.1 % (40.0-70.0); PLATELET COUNT (AUTO) 141 K/uL (130-430); RED BLOOD CELL COUNT(AUTO) 5.18 MIL/uL (4.2-6.2); RED CELL DISTRIBUTION WIDTH 17.5 % (9.0-15.0); WHITE BLOOD COUNT (AUTO) 4.4 K/uL (4.8-10.8)
[2021-09-28 07:13] LABS: ANION GAP 11 (5-15); CALCIUM 9.6 mg/dL (8.4-11.0); CHLORIDE 97 mmol/L (98-107); CREATININE 0.95 mg/dL (0.55-1.30); GLUCOSE 145 mg/dL (70-99); POTASSIUM 3.8 mmol/L (3.5-5.1); SODIUM SERUM 137 mmol/L (136-145); UREA NITROGEN, BLOOD 28 mg/dL (8-21)
[2021-09-28 07:43] VITALS: BP_SYST 107
[2021-09-28] MEDS: ATORVASTATIN 20 MG TABLET PO SCH (08:22)
[2021-09-28] MEDS: CARVEDILOL 12.5 MG TABLET (COREG) PO SCH (08:22)
[2021-09-28] MEDS: SPIRONOLACTONE 25 MG TABLET (ALDACTONE) PO SCH (08:22)
[2021-09-28] MEDS: ASPIRIN 81 MG TABLET(ECOTRIN) PO SCH (08:22)
[2021-09-28] MEDS: glipiZIDE XL 2.5 MG/TAB (GLUCOTROL XL) PO SCH (08:22)
[2021-09-28] MEDS: PANTOPRAZOLE SODIUM 40 MG TAB PO SCH (08:23)
[2021-09-28] MEDS: FUROSEMIDE 40 MG/4 ML VIAL IVP SCH (08:23)
--- NOTE | 2021-09-28 08:45 | NUR ---
AM MEDS GIVEN. EDUCATED PT ON THE EFFECTS OF MEDICATIONS. CAUTIONED TO BE CAREFUL AND CALL RN BEFORE STANDING UP.
[2021-09-28 09:00] VITALS: BP_SYST 117
[2021-09-28] MEDS: MORPHINE 2 MG/ML INJ. SYRINGE IVP PRN (09:34)
[2021-09-28 10:29] VITALS: BP_SYST 117
--- NOTE | 2021-09-28 11:07 | NUR ---
D/C Patient Patient given medication reconciliation form and D/C instructions. Exit Care provided. Patient verbalized understanding. MD discussed with patient the results and treatment provided. Ambulatory with steady gait using fww, for discharge to home. Patient in stable condition, ID band removed. IV catheter removed, intact and dressing applied, no active bleeding. Rx of given. Patient educated on pain management. All belongings sent with patient. Teaching on chf done and follow up care schedule per termite control technician Lora.
--- NOTE | 2021-09-28 15:31 | NUR ---
FOLLOW UP APPOINTMENT LATE ENTRY DUE TO PT CARE 09:30 ARRANGED CARDIOLOGY FOLLOW UP WITH DR MONDRAGON ON 10/03/21 AT 10:10 AM. PATIENT AND INSTRUCTED ON APPOINTMENT
== END 2021-09-28 11:07 | disposition home or self-care (01) | DRG 291 ==
LOC: SED 08:13 → STU 10:57
PROVIDERS: ADMIT Internal Medicine Hospice and Palliative Medicine; ATTEND Internal Medicine Hospice and Palliative Medicine
PROC: 0W9B3ZZ Drainage of Left Pleural Cavity, Percutaneous Approach (ICD-10-PCS; principal; 2021-09-26)
DX: I11.0 Hypertensive heart disease with heart failure (principal); I50.23 Acute on chronic systolic (congestive) heart failure; E44.1 Mild protein-calorie malnutrition; J91.8 Pleural effusion in other conditions classified elsewhere; I42.0 Dilated cardiomyopathy; E78.5 Hyperlipidemia, unspecified; E11.9 Type 2 diabetes mellitus without complications; Z20.822 Contact with and (suspected) exposure to COVID-19; I25.10 Atherosclerotic heart disease of native coronary artery without angina pectoris; I25.2 Old myocardial infarction; Z79.82 Long term (current) use of aspirin; Z79.899 Other long term (current) drug therapy; Z68.24 Body mass index [BMI] 24.0-24.9, adult; Z91.14 Patient's other noncompliance with medication regimen; Z87.891 Personal history of nicotine dependence; Z91.19 Patient's noncompliance with other medical treatment and regimen
CPT/HCPCS: 32555; 36415; 71045; 71250-TC; 76376; 76700-TC; 80048; 80053; 82042; 82947; 82962; 83036; 83735; 83880; 84157; 84484; 85025; 87070-TC; 93005; 96374; 96375; 99285; C1729; G0378; J1940; J1956; J2270

== ENCOUNTER 2021-11-03 07:29 | Emergency (ER) | payer OTHER ==
[~2021-11-03] VITALS: Ht 154.9 cm; Wt 49.9 kg
--- NOTE | 2021-11-03 07:29 | NUR ---
BROUGHT BACK TO BED #3 VIA WHEELCHAIR, TRIAGED, REPORT GIVEN TO JOAN
[2021-11-03 07:30] VITALS: BP_SYST 129
--- NOTE | 2021-11-03 07:35 | NUR ---
PT BIB FAMILY FROM HOME S/P SLIP AND FALL LANDING ONTO OUTSTRETCHED ARM ONTO LEFT WRIST. PAINFUL, PULSES PRESENT, WARM. PT ISAAOX4, V/S STABLE
--- NOTE | 2021-11-03 07:45 | NUR ---
ER DR. HARP AT THE BEDSIDE EXAMINING PT
[2021-11-03] MEDS: MORPHINE 4 MG INJ. 4 MG/ML VIAL IM ONE (08:05)
[2021-11-03] MEDS ORDERED: HYDR-3917 PO (08:49)
[2021-11-03] MEDS ORDERED: IBUP-1969 PO (08:49)
--- NOTE | 2021-11-03 09:30 | NUR ---
VOLAR splint applied to L WRIST. RADIAL pulse noted. Capillary refill <3 seconds. Patient has ability to move non-splinted digits. Has sensation present to affected site. Skin color within normal limits. Applied for pain management control.
[2021-11-03 09:45] VITALS: BP_SYST 129
--- NOTE | 2021-11-03 09:45 | NUR ---
Patient given written and verbal discharge instructions and verbalizes understanding. ER MD discussed with patient the results and treatment provided. Patient in stable condition. ID arm band removed. Rx of IBUPROFEN given. Patient educated on pain management and to follow up with PMD. Pain Scale 0/10. Opportunity for questions provided and answered. Medication side effect fact sheet provided.
== END 2021-11-03 09:45 | disposition home or self-care (01) ==
LOC: SED 07:29
DX: S52.532A Colles' fracture of left radius, initial encounter for closed fracture (principal); E11.9 Type 2 diabetes mellitus without complications; Z79.899 Other long term (current) drug therapy; Z79.82 Long term (current) use of aspirin; W01.0XXA Fall on same level from slipping, tripping and stumbling without subsequent striking against object, initial encounter; Y93.89 Activity, other specified; Y92.89 Other specified places as the place of occurrence of the external cause; Y99.8 Other external cause status
CPT/HCPCS: 73110; 73130; 96372; 99284; J2270